=== PATIENT | male | born 1960 | race Hispanic/Latino ===

== ENCOUNTER 2020-01-16 11:23 | Inpatient (IN) | payer BC, OTHER ==
[~2020-01-16] VITALS: Ht 170.2 cm; Wt 60.4 kg
[2020-01-16] MEDS ORDERED: METHYLPREDNISOLONE SOD SUCC 40MG/ML 1ML ONE (11:44)
[2020-01-16] MEDS ORDERED: ONDANSETRON HCL 4 MG/2 ML VIAL ONE (11:45)
[2020-01-16] MEDS ORDERED: SODIUM CHLORIDE 0.9% 500ML 500 ML IV ONE (11:45)
[2020-01-16] MEDS ORDERED: LEVOFLOXACIN 500 MG/D5W 100 ML 100 ML ONE (11:45)
[2020-01-16 11:53] LABS: HEMATOCRIT 42.2 % (42-54); LYMPHOCYTES % (AUTO) 10.3 % (21.0-51.0); MEAN CORPUSCULAR HEMOGLOBIN 31.5 pg (27.0-33.0); MEAN CORPUSCULAR HGB CONC 36.3 g/dL (32.0-36.0); MONOCYTES % (AUTO) 3.9 % (3.0-13.0); NEUTROPHILS % (AUTO) 84.7 % (40.0-77.0); PLATELET COUNT (AUTO) 98 K/uL (130-400); RED BLOOD CELL COUNT(AUTO) 4.85 MIL/uL (4.50-6.20); WHITE BLOOD COUNT (AUTO) 4.6 K/uL (4.8-10.8)
[2020-01-16 12:01] LABS: CARBON DIOXIDE 31 mmol/L (21-32); CHLORIDE 93 mmol/L (101-111); CREATININE 1.1 mg/dL (0.5-1.5); GLOMERULAR FILTR. RATE CALC 73 mL/min (>60); GLUCOSE,RANDOM 113 mg/dL (70-105); SODIUM SERUM 132 mmol/L (136-145); UREA NITROGEN, BLOOD 11 mg/dL (7-18)
[2020-01-16 12:17] LABS: ALANINE AMINOTRANSFERASE 28 U/L (12-78); ALBUMIN 2.8 g/dL (3.5-5.0); ASPARTATE AMINOTRANSFERASE 50 U/L (10-37); BILIRUBIN,TOTAL 0.6 mg/dL (0.2-1.0); CREATINE KINASE, TOTAL 127 U/L (21-232); MYOGLOBIN 82 ng/mL (10-92); TOTAL PROTEIN, SERUM 7.3 g/dL (6.0-8.3); TROPONIN I < 0.04 ng/mL (0.00-0.06)
[2020-01-16 12:19] LABS: APPEARANCE,URINE Clear (CLEAR); BILIRUBIN,URINE Negative (NEGATIVE); COLOR,URINE Yellow (YELLOW); GLUCOSE, URINE (UA) Negative (NEGATIVE); KETONES,URINE Trace mg/dL (NEGATIVE); LEUKOCYTE ESTERASE ,URINE Negative (NEGATIVE); NITRATE,URINE Negative (NEGATIVE); OCCULT BLOOD,URINE Trace (NEGATIVE); PROTEIN,URINE Trace mg/dL (NEGATIVE); UROBILINOGEN,URINE 0.2 mg/dL (0.2-1.0)
[2020-01-16 12:26] LABS: BACTERIA,URINE Rare /HPF (None Seen); RBC,URINE 0-1 /HPF (0-1); SQUAMOUS EPITHELIAL CELL,UR Rare /HPF (0-2)
[2020-01-16 12:38] LABS: INR 0.91 (0.85-1.15); PARTIAL THROMBOPLASTIN TIME 37.1 SEC (26.3-35.5); PROTHROMBIN TIME 9.9 SEC (9.6-11.6)
[2020-01-16] MEDS ORDERED: POTASSIUM BICARB/CIT AC 25 MEQ TABLET.EFF ONE (12:53)
[2020-01-16] MEDS ORDERED: LACTULOSE 20 GM/30 ML UDCUP PO PRN (15:00)
[2020-01-16] MEDS ORDERED: POTASSIUM CHLORIDE 10% ELIXIR 20 MEQ/15 ML UDCUP PO PRN (15:00)
[2020-01-16] MEDS ORDERED: POTASSIUM CHLORIDE 20MEQ/100ML 100 ML IV PRN ×2 (15:00)
[2020-01-16] MEDS: CEFTRIAXONE SODIUM 1 GM IV SCH (15:00)
[2020-01-16] MEDS ORDERED: ZOLPIDEM TARTRATE 5 MG TAB PO PRN (15:00)
[2020-01-16] MEDS: AZITHROMYCIN 500MG+NS 250ML 250 ML IV SCH (15:00)
[2020-01-16] MEDS ORDERED: ONDANSETRON HCL 4 MG/2 ML VIAL IV PRN (15:00)
[2020-01-16] MEDS ORDERED: MAGNESIUM 2GM PREMIX 50ML 50 ML IV PRN (15:00)
[2020-01-16] MEDS ORDERED: ACETAMINOPHEN 325 MG TAB PO PRN (15:00)
[2020-01-16] MEDS ORDERED: LIDOCAINE HCL-MPF 1% 2ML VIAL IV PRN ×2 (15:00)
[2020-01-16] MEDS ORDERED: POTASSIUM CHLORIDE 20 MEQ ERTAB PO PRN (15:00)
[2020-01-16] MEDS ORDERED: DiphenhydrAMINE HCL 50 MG/ML VIAL IV PRN (15:00)
[2020-01-16] MEDS ORDERED: NITROGLYCERIN 0.4 MG SL TAB SL PRN (15:00)
[2020-01-16] MEDS ORDERED: DIPHENHYDRAMINE HCL 25 MG CAPSULE PO PRN (15:00)
[2020-01-16] MEDS ORDERED: MORPHINE SULFATE 2 MG/ML 1ML SYG IV PRN (15:00)
[2020-01-16] MEDS ORDERED: GUAIFENESIN-DM 200/20 MG 10 ML PO PRN (15:00)
[2020-01-16] MEDS ORDERED: HYDRALAZINE HCL 20 MG/ML VIAL IV PRN (15:00)
[2020-01-16] MEDS ORDERED: MAG HYDROX/AL HYDROX/SIMETH ES 30 ML SUSP UDCUP PO PRN (15:00)
[2020-01-16] MEDS ORDERED: SODIUM CHLORIDE 0.9% 50 ML IV ONE (15:52)
[2020-01-16] MEDS ORDERED: AZITHROMYCIN 500MG+NS 250ML 250 ML IV ONE (15:52)
[2020-01-16] MEDS ORDERED: CEFTRIAXONE SODIUM 1 GM ONE (15:52)
[2020-01-16 17:20] VITALS: BP 133/84
[2020-01-16 19:29] VITALS: BP 125/80
[2020-01-16 20:01] VITALS: BP 130/81
[2020-01-16] MEDS: FAMOTIDINE 20MG TAB 20 MG TAB PO SCH (22:14)
[2020-01-17] VITALS: BP 120/73
[2020-01-17 04:00] VITALS: BP 121/86
[2020-01-17 04:28] LABS: BASOPHILS % (AUTO) 0.2 % (0.0-5.0); HEMATOCRIT 42.7 % (42-54); LYMPHOCYTES % (AUTO) 7.4 % (21.0-51.0); MEAN CORPUSCULAR HEMOGLOBIN 31.1 pg (27.0-33.0); MEAN CORPUSCULAR HGB CONC 35.4 g/dL (32.0-36.0); MEAN CORPUSCULAR VOLUME 87.9 fL (79-99); MONOCYTES % (AUTO) 3.9 % (3.0-13.0); PLATELET COUNT (AUTO) 105 K/uL (130-400); RED BLOOD CELL COUNT(AUTO) 4.86 MIL/uL (4.50-6.20); RED CELL DISTRIBUTION WIDTH 11.9 % (11.0-15.5); WHITE BLOOD COUNT (AUTO) 4.6 K/uL (4.8-10.8)
[2020-01-17 04:51] LABS: ALBUMIN 2.6 g/dL (3.5-5.0); BILIRUBIN,TOTAL 0.5 mg/dL (0.2-1.0); CREATININE 1.1 mg/dL (0.5-1.5)
[2020-01-17 05:02] LABS: CRP QUANTITATIVE 412.4 mg/L (0.00-9.0)
[2020-01-17 07:00] VITALS: BP 118/78
[2020-01-17] MEDS: FAMOTIDINE 20MG TAB 20 MG TAB PO SCH ×2 (07:59→21:00)
[2020-01-17] MEDS: DEXAMETHASONE 4 MG TAB PO SCH (07:59)
[2020-01-17] MEDS: ENOXAPARIN SODIUM 0.5 MG/KG EACH SQ SCH (09:00)
[2020-01-17 11:00] VITALS: BP 126/79
[2020-01-17] MEDS ORDERED: PHARMACY COMMUNICATION**REMDESIVIR ORDER MISC SCH (12:45)
[2020-01-17] MEDS: PHARMACY COMMUNICATION MISC SCH ×2 (14:00→22:00)
[2020-01-17 15:00] VITALS: BP 118/77
[2020-01-17] MEDS ORDERED: SODIUM CHLORIDE 0.9% 250 ML IV ONE (15:01)
--- NOTE | 2020-01-17 16:12 | NUR ---
CALL TO #[phone] WILI KING SPOUSE, ON FACE SHEET- NO ANSWER. TEXT - ASKING IF THIS IS CORRECT NUMBER FOR WILI- ANSWER BACK VIA TEXT YOU HAVE WRONG NUMBER CALL TO [phone] NO ANSWER- CALL BACK- WOMAN STATES MISSED CALL- THIS CM IDENTIFIED HERSELF, STATES CALLING FROM HOSPITAL, WOMAN STATES I CANNOT HEAR YOU WELL, AND HUNG UP. CALL BACK, NO ANSWER. CM TO FOLLOW UP NEEDED Addendum: 01/17/20 at 1617 by ANUPAMA AMBROSE RN CM Amended: Links added.
--- NOTE | 2020-01-17 17:31 | NUR ---
Plasma Completed: 2 units of convalescent plasma completed at 1720, pt tolerated well. VSS, RR even and unlabored, airway intact. Pt denies any SOB, itching/hives, N/V or HELMS. Pt sitting comfortably in bed eating dinner. Will administer antibiotics when finished eating. First set of VS: BP- 118/77 HR- 95 RR- 27 Temp- 98.3 Last set of VS: BP- 122/80 HR- 92 RR- 27 Temp- 98.6
[2020-01-17] MEDS: CEFTRIAXONE SODIUM 1 GM IV SCH (18:01)
[2020-01-17] MEDS: AZITHROMYCIN 500MG+NS 250ML 250 ML IV SCH (18:02)
[2020-01-17] MEDS: GUAIFENESIN-CODEINE 5 ML SYRUP PO PRN (18:15)
[2020-01-17 20:00] VITALS: BP 106/64
[2020-01-18] VITALS (7 sets, daily range): BP systolic 116–130; BP diastolic 67–92
[2020-01-18] MEDS: GUAIFENESIN-CODEINE 5 ML SYRUP PO PRN ×2 (00:15→03:33)
[2020-01-18 04:44] LABS: HEMATOCRIT 38.8 % (42-54); LYMPHOCYTES % (AUTO) 5.2 % (21.0-51.0); MEAN CORPUSCULAR HEMOGLOBIN 31.4 pg (27.0-33.0); MEAN CORPUSCULAR HGB CONC 35.3 g/dL (32.0-36.0); MEAN CORPUSCULAR VOLUME 88.8 fL (79-99); MONOCYTES % (AUTO) 3.9 % (3.0-13.0); NEUTROPHILS % (AUTO) 89.6 % (40.0-77.0); PLATELET COUNT (AUTO) 120 K/uL (130-400); RED BLOOD CELL COUNT(AUTO) 4.37 MIL/uL (4.50-6.20); WHITE BLOOD COUNT (AUTO) 6.8 K/uL (4.8-10.8)
[2020-01-18 05:08] LABS: ALBUMIN 2.5 g/dL (3.5-5.0); BILIRUBIN,TOTAL 0.5 mg/dL (0.2-1.0); MAGNESIUM 2.3 mg/dL (1.80-2.40); PHOSPHORUS 2.9 mg/dL (2.5-4.9); TOTAL PROTEIN, SERUM 6.7 g/dL (6.0-8.3)
[2020-01-18 05:31] LABS: CRP QUANTITATIVE 197.1 mg/L (0.00-9.0)
[2020-01-18] MEDS: PHARMACY COMMUNICATION MISC SCH ×3 (06:00→22:00)
[2020-01-18] MEDS: ENOXAPARIN SODIUM 0.5 MG/KG EACH SQ SCH (09:00)
[2020-01-18] MEDS: DEXAMETHASONE 4 MG TAB PO SCH (09:29)
[2020-01-18] MEDS: FAMOTIDINE 20MG TAB 20 MG TAB PO SCH ×2 (09:29→21:23)
[2020-01-18] MEDS ORDERED: ENOXAPARIN SODIUM 40 MG/0.4 ML SYRINGE SQ SCH (09:45)
[2020-01-18] MEDS: CEFTRIAXONE SODIUM 1 GM IV SCH (14:42)
[2020-01-18] MEDS: AZITHROMYCIN 500MG+NS 250ML 250 ML IV SCH (14:42)
[2020-01-18] MEDS: FUROSEMIDE 10 MG/ML 10ML VIAL IVP SCH ×2 (14:50→21:23)
[2020-01-18] MEDS: ENOXAPARIN SODIUM 40 MG/0.4 ML SYRINGE SQ SCH (21:23)
[2020-01-19] VITALS (8 sets, daily range): BP systolic 113–138; BP diastolic 69–93
[2020-01-19 04:09] LABS: BASOPHILS % (AUTO) 0.2 % (0.0-5.0); HEMATOCRIT 40.8 % (42-54); MEAN CORPUSCULAR HEMOGLOBIN 31.3 pg (27.0-33.0); MEAN CORPUSCULAR HGB CONC 35.3 g/dL (32.0-36.0); MEAN CORPUSCULAR VOLUME 88.7 fL (79-99); MONOCYTES % (AUTO) 3.2 % (3.0-13.0); NEUTROPHILS % (AUTO) 88.5 % (40.0-77.0); PLATELET COUNT (AUTO) 156 K/uL (130-400); WHITE BLOOD COUNT (AUTO) 6.3 K/uL (4.8-10.8)
[2020-01-19 04:26] LABS: ALANINE AMINOTRANSFERASE 44 U/L (12-78); ALBUMIN 2.6 g/dL (3.5-5.0); ASPARTATE AMINOTRANSFERASE 42 U/L (10-37); BILIRUBIN,TOTAL 0.7 mg/dL (0.2-1.0); CARBON DIOXIDE 33 mmol/L (21-32); CHLORIDE 99 mmol/L (101-111); GLOMERULAR FILTR. RATE CALC 82 mL/min (>60); GLUCOSE,RANDOM 119 mg/dL (70-105); LACTATE DEHYDROGENASE 487 U/L (81-234); PHOSPHORUS 3.2 mg/dL (2.5-4.9); POTASSIUM 3.5 mmol/L (3.5-5.1); SODIUM SERUM 139 mmol/L (136-145); UREA NITROGEN, BLOOD 19 mg/dL (7-18)
[2020-01-19] MEDS: PHARMACY COMMUNICATION MISC SCH ×3 (06:00→14:00)
[2020-01-19] MEDS: ENOXAPARIN SODIUM 0.5 MG/KG EACH SQ SCH (09:00)
[2020-01-19] MEDS: FAMOTIDINE 20MG TAB 20 MG TAB PO SCH (09:54)
[2020-01-19] MEDS: DEXAMETHASONE 4 MG TAB PO SCH (09:54)
[2020-01-19] MEDS: ENOXAPARIN SODIUM 40 MG/0.4 ML SYRINGE SQ SCH (09:54)
[2020-01-19] MEDS: FUROSEMIDE 10 MG/ML 10ML VIAL IVP SCH (09:55)
--- NOTE | 2020-01-19 11:25 | NUR ---
DC PLAN SPOUSE WILI [phone]. LIVES WITH SPOUSE. INDEPENDENT ABLE TO PERFORM ADLS. NO SERVICES OR EQUIPMENT. FEELS SAFE TO RETURN HOME. Addendum: 01/19/20 at 1128 by ERNESTO PANTOJA RN CM Amended: Links added.
[2020-01-19] MEDS: CEFTRIAXONE SODIUM 1 GM IV SCH (16:43)
[2020-01-19] MEDS: AZITHROMYCIN 500MG+NS 250ML 250 ML IV SCH (16:43)
[2020-01-20] VITALS (7 sets, daily range): BP systolic 110–130; BP diastolic 64–94
[2020-01-20 05:11] LABS: ALBUMIN 2.4 g/dL (3.5-5.0); BILIRUBIN,TOTAL 1.1 mg/dL (0.2-1.0); CREATININE 0.9 mg/dL (0.5-1.5); PHOSPHORUS 3.3 mg/dL (2.5-4.9); POTASSIUM 3.2 mmol/L (3.5-5.1); TOTAL PROTEIN, SERUM 6.9 g/dL (6.0-8.3)
[2020-01-20] MEDS: PHARMACY COMMUNICATION MISC SCH ×3 (06:00→20:37)
[2020-01-20] MEDS: ENOXAPARIN SODIUM 0.5 MG/KG EACH SQ SCH (09:00)
[2020-01-20] MEDS: FUROSEMIDE 10 MG/ML 10ML VIAL IVP SCH (12:11)
[2020-01-20] MEDS: FAMOTIDINE 20MG TAB 20 MG TAB PO SCH ×2 (12:13→20:29)
[2020-01-20] MEDS: DEXAMETHASONE 4 MG TAB PO SCH (12:13)
[2020-01-20] MEDS: ENOXAPARIN SODIUM 40 MG/0.4 ML SYRINGE SQ SCH ×2 (12:28→20:29)
[2020-01-20] MEDS: GUAIFENESIN-CODEINE 5 ML SYRUP PO PRN (12:58)
[2020-01-20] MEDS: AZITHROMYCIN 500MG+NS 250ML 250 ML IV SCH (15:28)
[2020-01-20] MEDS: CEFTRIAXONE SODIUM 1 GM IV SCH (15:28)
[2020-01-20] MEDS: ACETAMINOPHEN-CODEINE 300/30MG TAB PO PRN ×2 (16:07→22:30)
[2020-01-21 04:00] VITALS: BP 121/85
[2020-01-21] MEDS: PHARMACY COMMUNICATION MISC SCH ×3 (06:00→23:07)
[2020-01-21 08:00] VITALS: BP 122/87
[2020-01-21] MEDS: FAMOTIDINE 20MG TAB 20 MG TAB PO SCH ×2 (08:27→21:17)
[2020-01-21] MEDS: GUAIFENESIN-CODEINE 5 ML SYRUP PO PRN (08:27)
[2020-01-21] MEDS: DEXAMETHASONE 4 MG TAB PO SCH (08:27)
[2020-01-21] MEDS: FUROSEMIDE 10 MG/ML 2ML VIAL IV SCH ×2 (08:30→21:17)
[2020-01-21] MEDS: ENOXAPARIN SODIUM 0.5 MG/KG EACH SQ SCH (08:31)
[2020-01-21] MEDS: ENOXAPARIN SODIUM 40 MG/0.4 ML SYRINGE SQ SCH ×2 (08:31→21:17)
[2020-01-21 08:41] LABS: BASOPHILS % (AUTO) 0.2 % (0.0-5.0); EOSINOPHILS % (AUTO) 0.4 % (0.0-8.0); HEMATOCRIT 46.8 % (42-54); MEAN CORPUSCULAR HEMOGLOBIN 31.4 pg (27.0-33.0); MEAN CORPUSCULAR HGB CONC 35.3 g/dL (32.0-36.0); MONOCYTES % (AUTO) 0.8 % (3.0-13.0); PLATELET COUNT (AUTO) 249 K/uL (130-400); RED BLOOD CELL COUNT(AUTO) 5.26 MIL/uL (4.50-6.20); RED CELL DISTRIBUTION WIDTH 11.8 % (11.0-15.5); WHITE BLOOD COUNT (AUTO) 13.9 K/uL (4.8-10.8)
[2020-01-21 08:56] LABS: ALBUMIN 2.6 g/dL (3.5-5.0); BILIRUBIN,TOTAL 1.1 mg/dL (0.2-1.0); POTASSIUM 4.1 mmol/L (3.5-5.1); TOTAL PROTEIN, SERUM 7.8 g/dL (6.0-8.3)
[2020-01-21 12:00] VITALS: BP 131/91
[2020-01-21] MEDS ORDERED: PHARMACY COMMUNICATION MISC SCH (16:00)
[2020-01-21] MEDS: AZITHROMYCIN 500MG+NS 250ML 250 ML IV SCH (16:15)
[2020-01-21] MEDS: CEFTRIAXONE SODIUM 1 GM IV SCH (16:15)
[2020-01-21 17:08] LABS: ALANINE AMINOTRANSFERASE 46 U/L (12-78); ASPARTATE AMINOTRANSFERASE 42 U/L (10-37)
[2020-01-21] MEDS ORDERED: REMDESIVIR (EUA) 520 200 MG in SODIUM CHLORIDE 0.9% 250 ML IV SCH (18:30)
[2020-01-21] MEDS ORDERED: COMPOUND IV REFRIGERATED 1 EACH IVSOLN MISC PRN (18:30)
[2020-01-21 18:53] VITALS: BP 116/78
[2020-01-21 20:00] VITALS: BP_SYST 112; BP_SYST 125; BP_DIAS 67; BP_DIAS 82
[2020-01-21] MEDS: ACETAMINOPHEN-CODEINE 300/30MG TAB PO PRN (21:00)
[2020-01-22] VITALS: BP 113/74
[2020-01-22 04:00] VITALS: BP 131/86
[2020-01-22 04:07] LABS: ABG BASE EXCESS 3.8 mmol/L (-2.0-3.0); ABG HCO3 27.8 mmol/L (21.0-28.0); ABG OXYGEN SATURATION 86.1 % (95.0-99.0); ABG PCO2 40 mmHg (35-48)
[2020-01-22 04:18] LABS: EOSINOPHILS % (AUTO) 0.5 % (0.0-8.0); HEMATOCRIT 39.6 % (42-54); LYMPHOCYTES % (AUTO) 3.1 % (21.0-51.0); MEAN CORPUSCULAR HEMOGLOBIN 31.4 pg (27.0-33.0); MEAN CORPUSCULAR HGB CONC 35.1 g/dL (32.0-36.0); MEAN CORPUSCULAR VOLUME 89.4 fL (79-99); MONOCYTES % (AUTO) 1.1 % (3.0-13.0); NEUTROPHILS % (AUTO) 94.1 % (40.0-77.0); PLATELET COUNT (AUTO) 214 K/uL (130-400); RED BLOOD CELL COUNT(AUTO) 4.43 MIL/uL (4.50-6.20); RED CELL DISTRIBUTION WIDTH 11.9 % (11.0-15.5); WHITE BLOOD COUNT (AUTO) 8.2 K/uL (4.8-10.8)
[2020-01-22 04:33] LABS: ALBUMIN 2.1 g/dL (3.5-5.0); BILIRUBIN,DIRECT 0.1 mg/dL (0.0-0.3); BILIRUBIN,TOTAL 0.7 mg/dL (0.2-1.0); MAGNESIUM 2.3 mg/dL (1.80-2.40); PHOSPHORUS 3.4 mg/dL (2.5-4.9); POTASSIUM 3.7 mmol/L (3.5-5.1); TOTAL PROTEIN, SERUM 6.4 g/dL (6.0-8.3)
[2020-01-22] MEDS: PHARMACY COMMUNICATION MISC SCH ×4 (05:37→22:00)
[2020-01-22] MEDS: GUAIFENESIN-CODEINE 5 ML SYRUP PO PRN (06:00)
[2020-01-22 08:00] VITALS: BP 137/97
--- NOTE | 2020-01-22 08:15 | NUR ---
AM ASSESSMENT PT LAYING IN BED, PRONE POSITION. A/O X 3. SOB ON EXERTION. NO DISTRESS NOTED. NRBM @ 15L, 100% FIO2. DENIES CHEST PAIN OR DISCOMFORT. DENIES PALPITATIONS. TELE: SR. DENIES N/V AND/OR DIARRHEA. BR W/BRP. BEDSIDE COMMODE. INSTRUCTED TO CALL FOR ASSISTANCE. CALL JENNIFER W/IN REACH.
[2020-01-22] MEDS: AZITHROMYCIN 500MG+NS 250ML 250 ML IV SCH (08:26)
[2020-01-22] MEDS: FAMOTIDINE 20MG TAB 20 MG TAB PO SCH ×2 (08:27→21:00)
[2020-01-22] MEDS: DEXAMETHASONE 4 MG TAB PO SCH (08:27)
[2020-01-22] MEDS: CEFTRIAXONE SODIUM 1 GM IV SCH (08:29)
[2020-01-22] MEDS: FUROSEMIDE 10 MG/ML 2ML VIAL IV SCH ×2 (08:29→20:00)
[2020-01-22] MEDS: ENOXAPARIN SODIUM 80 MG/0.8 ML SQ SCH ×2 (08:32→21:00)
[2020-01-22] MEDS ORDERED: ENOXAPARIN SODIUM 1 MG/KG SQ SCH (09:00)
[2020-01-22 12:00] VITALS: BP 121/82
[2020-01-22] MEDS: ACETAMINOPHEN-CODEINE 300/30MG TAB PO PRN ×2 (14:10→22:00)
[2020-01-22 16:00] VITALS: BP 121/80
--- NOTE | 2020-01-22 18:00 | NUR ---
[facility] NOTIFIED PT'S REMDESVIR DOSE DUE @ 1830 NOT IN OMNICELL OR MED RM.
[2020-01-22] MEDS: REMDESIVIR (EUA) 520 100 MG in SODIUM CHLORIDE 0.9% 250 ML IV SCH (19:39)
[2020-01-22 20:00] VITALS: BP 106/70
[2020-01-23] VITALS: BP 102/57
[2020-01-23 04:00] VITALS: BP 118/70
[2020-01-23 04:37] LABS: BASOPHILS % (AUTO) 0.1 % (0.0-5.0); EOSINOPHILS % (AUTO) 0.5 % (0.0-8.0); HEMATOCRIT 41.8 % (42-54); LYMPHOCYTES % (AUTO) 3.4 % (21.0-51.0); MEAN CORPUSCULAR HEMOGLOBIN 31.3 pg (27.0-33.0); MEAN CORPUSCULAR HGB CONC 34.9 g/dL (32.0-36.0); MEAN CORPUSCULAR VOLUME 89.7 fL (79-99); MONOCYTES % (AUTO) 1.3 % (3.0-13.0); PLATELET COUNT (AUTO) 205 K/uL (130-400); RED BLOOD CELL COUNT(AUTO) 4.66 MIL/uL (4.50-6.20); RED CELL DISTRIBUTION WIDTH 12.2 % (11.0-15.5); WHITE BLOOD COUNT (AUTO) 7.6 K/uL (4.8-10.8)
[2020-01-23] MEDS: GUAIFENESIN-CODEINE 5 ML SYRUP PO PRN (05:00)
[2020-01-23 05:09] LABS: ALBUMIN 2.2 g/dL (3.5-5.0); BILIRUBIN,DIRECT 0.2 mg/dL (0.0-0.3); BILIRUBIN,TOTAL 0.8 mg/dL (0.2-1.0); CREATININE 0.8 mg/dL (0.5-1.5); MAGNESIUM 2.3 mg/dL (1.80-2.40); PHOSPHORUS 3.6 mg/dL (2.5-4.9); POTASSIUM 4.2 mmol/L (3.5-5.1)
[2020-01-23 05:41] LABS: CRP QUANTITATIVE 372.6 mg/L (0.00-9.0)
[2020-01-23] MEDS: PHARMACY COMMUNICATION MISC SCH ×4 (06:59→20:13)
[2020-01-23] MEDS: FUROSEMIDE 10 MG/ML 2ML VIAL IV SCH ×2 (08:43→20:12)
[2020-01-23] MEDS: CEFTRIAXONE SODIUM 1 GM IV SCH (08:44)
[2020-01-23] MEDS: AZITHROMYCIN 500MG+NS 250ML 250 ML IV SCH (08:44)
[2020-01-23] MEDS: FAMOTIDINE 20MG TAB 20 MG TAB PO SCH ×2 (08:45→20:12)
[2020-01-23] MEDS: DEXAMETHASONE 4 MG TAB PO SCH (08:45)
[2020-01-23] MEDS: ENOXAPARIN SODIUM 80 MG/0.8 ML SQ SCH ×2 (08:46→20:13)
[2020-01-23 09:34] VITALS: BP 143/77
[2020-01-23 09:57] LABS: BILIRUBIN,DIRECT 0.1 mg/dL (0.0-0.3); BILIRUBIN,TOTAL 0.7 mg/dL (0.2-1.0); POTASSIUM 4.1 mmol/L (3.5-5.1); TOTAL PROTEIN, SERUM 7.1 g/dL (6.0-8.3)
[2020-01-23 10:11] LABS: ALBUMIN 2.2 g/dL (3.5-5.0)
[2020-01-23 12:10] VITALS: BP 112/67
[2020-01-23 17:30] VITALS: BP 104/72
[2020-01-23] MEDS: REMDESIVIR (EUA) 520 100 MG in SODIUM CHLORIDE 0.9% 250 ML IV SCH (18:46)
[2020-01-23 20:12] VITALS: BP 118/77
[2020-01-23] MEDS ORDERED: ASPI-1197 PO (23:26)
[2020-01-23] MEDS ORDERED: LOSA1TAB54 PO (23:26)
[2020-01-23] MEDS ORDERED: BENZ-51 PO (23:26)
[2020-01-23] MEDS ORDERED: ESOM40CA54 PO (23:26)
[2020-01-24] VITALS (9 sets, daily range): BP systolic 94–132; BP diastolic 54–90
[2020-01-24] MEDS: GUAIFENESIN-CODEINE 5 ML SYRUP PO PRN (01:13)
[2020-01-24 04:28] LABS: ALBUMIN 2.1 g/dL (3.5-5.0); BILIRUBIN,DIRECT 0.3 mg/dL (0.0-0.3); BILIRUBIN,TOTAL 0.8 mg/dL (0.2-1.0); POTASSIUM 4.4 mmol/L (3.5-5.1); TOTAL PROTEIN, SERUM 6.5 g/dL (6.0-8.3)
[2020-01-24] MEDS: PHARMACY COMMUNICATION MISC SCH ×2 (05:01)
[2020-01-24] MEDS: FAMOTIDINE 20MG TAB 20 MG TAB PO SCH ×2 (09:47→21:29)
[2020-01-24] MEDS: AZITHROMYCIN 500MG+NS 250ML 250 ML IV SCH (09:47)
[2020-01-24] MEDS: DEXAMETHASONE 4 MG TAB PO SCH (09:47)
[2020-01-24] MEDS: CEFTRIAXONE SODIUM 1 GM IV SCH (09:47)
[2020-01-24] MEDS: ENOXAPARIN SODIUM 80 MG/0.8 ML SQ SCH ×2 (09:48→21:29)
[2020-01-24] MEDS: FUROSEMIDE 10 MG/ML 2ML VIAL IV SCH ×2 (09:50→21:29)
[2020-01-24] MEDS: REMDESIVIR (EUA) 520 100 MG in SODIUM CHLORIDE 0.9% 250 ML IV SCH (18:57)
[2020-01-25] VITALS (8 sets, daily range): BP systolic 92–133; BP diastolic 37–80
[2020-01-25 05:10] LABS: BASOPHILS % (AUTO) 0.1 % (0.0-5.0); EOSINOPHILS % (AUTO) 0.1 % (0.0-8.0); HEMATOCRIT 40.8 % (42-54); LYMPHOCYTES % (AUTO) 2.9 % (21.0-51.0); MEAN CORPUSCULAR HEMOGLOBIN 30.9 pg (27.0-33.0); MEAN CORPUSCULAR HGB CONC 34.3 g/dL (32.0-36.0); MEAN CORPUSCULAR VOLUME 90.1 fL (79-99); MONOCYTES % (AUTO) 1.3 % (3.0-13.0); NEUTROPHILS % (AUTO) 95.2 % (40.0-77.0); PLATELET COUNT (AUTO) 273 K/uL (130-400); RED BLOOD CELL COUNT(AUTO) 4.53 MIL/uL (4.50-6.20); WHITE BLOOD COUNT (AUTO) 8.4 K/uL (4.8-10.8)
[2020-01-25 05:14] LABS: ALBUMIN 1.9 g/dL (3.5-5.0); BILIRUBIN,TOTAL 0.6 mg/dL (0.2-1.0); POTASSIUM 4.3 mmol/L (3.5-5.1); TOTAL PROTEIN, SERUM 6.4 g/dL (6.0-8.3)
[2020-01-25] MEDS: ACETAMINOPHEN-CODEINE 300/30MG TAB PO PRN (05:33)
[2020-01-25 05:42] LABS: B-TYPE NATRIURETIC PEPTIDE 8 pg/mL (0-100)
[2020-01-25] MEDS: PHARMACY COMMUNICATION MISC SCH (06:00)
[2020-01-25] MEDS: CEFTRIAXONE SODIUM 1 GM IV SCH (09:20)
[2020-01-25] MEDS: AZITHROMYCIN 500MG+NS 250ML 250 ML IV SCH (09:20)
[2020-01-25] MEDS: FUROSEMIDE 10 MG/ML 2ML VIAL IV SCH (09:20)
[2020-01-25] MEDS: DEXAMETHASONE 4 MG TAB PO SCH (09:20)
[2020-01-25] MEDS: FAMOTIDINE 20MG TAB 20 MG TAB PO SCH ×2 (09:21→20:19)
[2020-01-25] MEDS: ENOXAPARIN SODIUM 80 MG/0.8 ML SQ SCH ×2 (09:21→20:20)
--- NOTE | 2020-01-25 11:26 | NUR ---
RDSCREEN - LOS X 9 Pt admitted with COVID, Hypoxia. Pt is tolerating Heart Healthy diet order with no report of GI distress. PO intake at 100% this AM. Pt continues with 100% NRB and continues to prone intermittently. RD to continue PO intake as difficulty consuming foods with NRB mask. Recommend continue Heart Healthy Diet order Recommend Ensure BID RD to continue to monitor. Please notify as additional nutrition concerns arise. Thank you. Addendum: 01/25/20 at [address] Amended: Links added.
[2020-01-25] MEDS ORDERED: IOHEXOL-350 75 ML VIAL IV ONE (12:54)
[2020-01-25] MEDS: REMDESIVIR (EUA) 520 100 MG in SODIUM CHLORIDE 0.9% 250 ML IV SCH (18:24)
[2020-01-26] MEDS: GUAIFENESIN-CODEINE 5 ML SYRUP PO PRN ×2 (03:18→21:40)
[2020-01-26 04:00] VITALS: BP 126/79
[2020-01-26 04:42] LABS: CREATININE 0.9 mg/dL (0.5-1.5); MAGNESIUM 2.2 mg/dL (1.80-2.40); POTASSIUM 4.1 mmol/L (3.5-5.1)
[2020-01-26] MEDS: PHARMACY COMMUNICATION MISC SCH (06:00)
[2020-01-26] MEDS: CEFTRIAXONE SODIUM 1 GM IV SCH (08:12)
[2020-01-26] MEDS: AZITHROMYCIN 500MG+NS 250ML 250 ML IV SCH (08:12)
[2020-01-26] MEDS: DEXAMETHASONE 4 MG TAB PO SCH (08:20)
[2020-01-26] MEDS: FAMOTIDINE 20MG TAB 20 MG TAB PO SCH ×2 (08:20→21:04)
[2020-01-26] MEDS: ENOXAPARIN SODIUM 80 MG/0.8 ML SQ SCH ×2 (08:21→21:04)
[2020-01-26 08:29] VITALS: BP 127/77
[2020-01-26 12:14] VITALS: BP 138/68
[2020-01-26 15:28] VITALS: BP 111/68
[2020-01-26 19:00] VITALS: BP 106/60
[2020-01-26 23:00] VITALS: BP 120/75
[2020-01-27 03:00] VITALS: BP 109/73
[2020-01-27 05:00] LABS: BASOPHILS % (AUTO) 0.1 % (0.0-5.0); EOSINOPHILS % (AUTO) 0.2 % (0.0-8.0); HEMATOCRIT 42.4 % (42-54); LYMPHOCYTES % (AUTO) 4.6 % (21.0-51.0); MEAN CORPUSCULAR HEMOGLOBIN 30.9 pg (27.0-33.0); MONOCYTES % (AUTO) 1.7 % (3.0-13.0); NEUTROPHILS % (AUTO) 92.5 % (40.0-77.0); PLATELET COUNT (AUTO) 288 K/uL (130-400); RED BLOOD CELL COUNT(AUTO) 4.66 MIL/uL (4.50-6.20); RED CELL DISTRIBUTION WIDTH 12.3 % (11.0-15.5); WHITE BLOOD COUNT (AUTO) 9.7 K/uL (4.8-10.8)
[2020-01-27 05:25] LABS: BILIRUBIN,TOTAL 0.6 mg/dL (0.2-1.0); CREATININE 0.9 mg/dL (0.5-1.5); MAGNESIUM 2.1 mg/dL (1.80-2.40); POTASSIUM 4.3 mmol/L (3.5-5.1); TOTAL PROTEIN, SERUM 6.2 g/dL (6.0-8.3)
[2020-01-27 08:01] VITALS: BP 116/83
[2020-01-27] MEDS: FAMOTIDINE 20MG TAB 20 MG TAB PO SCH ×2 (10:05→19:34)
[2020-01-27 10:06] LABS: ABG BASE EXCESS 2.3 mmol/L (-2.0-3.0); ABG HCO3 25.8 mmol/L (21.0-28.0); ABG OXYGEN SATURATION 97.9 % (95.0-99.0); ABG PCO2 37 mmHg (35-48)
[2020-01-27] MEDS: ENOXAPARIN SODIUM 80 MG/0.8 ML SQ SCH ×2 (10:12→19:34)
[2020-01-27 12:01] VITALS: BP 112/71
--- NOTE | 2020-01-27 14:19 | NUR ---
RD FOLLOW UP Pt continues with Heart Healthy Diet Order. PO intake at 75% on 01/24. Attempt to call RN unit, no answer. Pt with NRB in place. Ensure BID in place, unknown intake. Monitored labs: Alb 2.0, Improving BUN status, AST 38. LBM 01/24. Recommend to continue current diet order Please notify as additional nutrition concerns arise. Thank you.
[2020-01-27 16:01] VITALS: BP 108/74
[2020-01-27 19:55] VITALS: BP 129/76
[2020-01-27] MEDS: GUAIFENESIN-CODEINE 5 ML SYRUP PO PRN (21:00)
[2020-01-27 23:33] VITALS: BP 111/52
[2020-01-28 04:25] LABS: BASOPHILS % (AUTO) 0.2 % (0.0-5.0); EOSINOPHILS % (AUTO) 0.3 % (0.0-8.0); HEMATOCRIT 41.3 % (42-54); LYMPHOCYTES % (AUTO) 2.6 % (21.0-51.0); MEAN CORPUSCULAR HEMOGLOBIN 30.9 pg (27.0-33.0); MEAN CORPUSCULAR HGB CONC 34.4 g/dL (32.0-36.0); MONOCYTES % (AUTO) 1.5 % (3.0-13.0); PLATELET COUNT (AUTO) 258 K/uL (130-400); RED BLOOD CELL COUNT(AUTO) 4.59 MIL/uL (4.50-6.20); RED CELL DISTRIBUTION WIDTH 12.1 % (11.0-15.5); WHITE BLOOD COUNT (AUTO) 11.7 K/uL (4.8-10.8)
[2020-01-28 04:31] VITALS: BP 111/64
[2020-01-28 04:38] LABS: ALBUMIN 1.7 g/dL (3.5-5.0); BILIRUBIN,TOTAL 0.8 mg/dL (0.2-1.0); CREATININE 0.9 mg/dL (0.5-1.5); POTASSIUM 4.6 mmol/L (3.5-5.1)
[2020-01-28 08:00] VITALS: BP 123/65
[2020-01-28] MEDS: FAMOTIDINE 20MG TAB 20 MG TAB PO SCH ×2 (08:20→20:26)
[2020-01-28] MEDS: ENOXAPARIN SODIUM 80 MG/0.8 ML SQ SCH ×2 (10:10→20:26)
[2020-01-28 12:00] VITALS: BP 121/72
[2020-01-28 16:00] VITALS: BP 131/51
[2020-01-28] MEDS: DIAZEPAM 5 MG TABLET PO PRN (16:45)
[2020-01-28 19:00] VITALS: BP 114/57
[2020-01-28] MEDS: GUAIFENESIN-CODEINE 5 ML SYRUP PO PRN (20:26)
[2020-01-28 23:00] VITALS: BP 112/66
[2020-01-29] VITALS (36 sets, daily range): BP systolic 58–165; BP diastolic 29–113
[2020-01-29] MEDS: DIAZEPAM 5 MG TABLET PO PRN ×2 (00:45→18:59)
[2020-01-29 05:24] LABS: MEAN CORPUSCULAR HEMOGLOBIN 31.5 pg (27.0-33.0); MEAN CORPUSCULAR HGB CONC 34.9 g/dL (32.0-36.0); MEAN CORPUSCULAR VOLUME 90.3 fL (79-99); RED BLOOD CELL COUNT(AUTO) 4.76 MIL/uL (4.50-6.20); RED CELL DISTRIBUTION WIDTH 12.2 % (11.0-15.5); WHITE BLOOD COUNT (AUTO) 13.7 K/uL (4.8-10.8)
[2020-01-29 05:42] LABS: CREATININE 1.1 mg/dL (0.5-1.5); POTASSIUM 4.5 mmol/L (3.5-5.1)
[2020-01-29] MEDS: FAMOTIDINE 20MG TAB 20 MG TAB PO SCH ×2 (08:15→21:00)
[2020-01-29] MEDS: ENOXAPARIN SODIUM 80 MG/0.8 ML SQ SCH ×2 (08:16→21:00)
--- NOTE | 2020-01-29 19:00 | NUR ---
ACCEPTED CARE ACCEPTED CARE REPORT RECEIVED USING SBAR FORMAT. PATIENT IS UNSTABLE HR IS BETWEEN 180 AND 220. PATIENT IS PRONED O2 SATS ARE LOW. CANDLE MOLDER HAND PAGED, ORDERS RECEIVED, PATIENT PLACED ON BIPAP PRONE POSITION MAINTAINED. PATIENT IS RESTLESS AND AGITATED, SEDATED PER ORDERS AND PROTOCOL. CONDITION IS UNSTABLE AND CRITICAL. CARDIZEM DRIP STARTED.
[2020-01-29] MEDS ORDERED: DILTIAZEM 125MG+100 ML NS 125 ML IV PRN (20:00)
[2020-01-29] MEDS ORDERED: LORAZEPAM 2 MG/ML 1 ML VIAL ONE (20:05)
[2020-01-29] MEDS ORDERED: DILTIAZEM HCL 5 MG/ML 10 ML VIAL IV SCH (21:00)
[2020-01-29] MEDS ORDERED: LORAZEPAM 2 MG/ML 1 ML VIAL IVP ONE (21:00)
[2020-01-29 21:01] LABS: ABG BASE EXCESS -3.7 mmol/L (-2.0-3.0); ABG HCO3 22.4 mmol/L (21.0-28.0); ABG OXYGEN SATURATION 73.3 % (95.0-99.0); ABG PCO2 44 mmHg (35-48)
[2020-01-29] MEDS ORDERED: DEXMEDETOMIDINE HCL 400 MCG in SODIUM CHLORIDE 0.9% 96 ML IV PRN (21:15)
[2020-01-29] MEDS ORDERED: NOREPINEPHRINE 4MG/NS 250ML 250 ML IV ONE (21:33)
[2020-01-29] MEDS ORDERED: AMIODARONE HCL 50 MG/ML 3 ML VIAL ONE (21:34)
[2020-01-29] MEDS ORDERED: PHENYLEPHRINE HCL 10 MG/ML 1ML VIAL IV ONE (21:34)
[2020-01-29] MEDS ORDERED: DEXTROSE 5%-WATER 0 ML IV ONE (21:35)
[2020-01-29] MEDS ORDERED: SODIUM CHLORIDE 0.9% 250 ML IV ONE (21:35)
[2020-01-29] MEDS ORDERED: SODIUM CHLORIDE 0.9% 100 ML IV ONE (21:35)
[2020-01-29 21:45] LABS: BASOPHILS % (AUTO) 0.2 % (0.0-5.0); EOSINOPHILS % (AUTO) 0.1 % (0.0-8.0); HEMATOCRIT 41.3 % (42-54); LYMPHOCYTES % (AUTO) 1.3 % (21.0-51.0); MEAN CORPUSCULAR HEMOGLOBIN 31.3 pg (27.0-33.0); MEAN CORPUSCULAR HGB CONC 34.4 g/dL (32.0-36.0); MONOCYTES % (AUTO) 1.8 % (3.0-13.0); NEUTROPHILS % (AUTO) 94.1 % (40.0-77.0); PLATELET COUNT (AUTO) 244 K/uL (130-400); RED BLOOD CELL COUNT(AUTO) 4.54 MIL/uL (4.50-6.20); RED CELL DISTRIBUTION WIDTH 12.4 % (11.0-15.5); WHITE BLOOD COUNT (AUTO) 16.2 K/uL (4.8-10.8)
[2020-01-29 22:03] LABS: CREATININE 1.3 mg/dL (0.5-1.5); POTASSIUM 4.4 mmol/L (3.5-5.1)
[2020-01-29 22:06] LABS: MAGNESIUM 1.7 mg/dL (1.80-2.40); PHOSPHORUS 4.6 mg/dL (2.5-4.9)
[2020-01-29 22:23] LABS: TROPONIN I 0.05 ng/mL (0.00-0.06)
[2020-01-29 23:35] LABS: ABG BASE EXCESS -2.4 mmol/L (-2.0-3.0); ABG OXYGEN SATURATION 94.2 % (95.0-99.0); ABG PCO2 37 mmHg (35-48)
[2020-01-30] VITALS (94 sets, daily range): BP systolic 67–181; BP diastolic 29–108
[2020-01-30] MEDS ORDERED: DEXMEDETOMIDINE HCL 200 MCG/2 ML VIAL IV ONE (02:16)
[2020-01-30] MEDS ORDERED: NOREPINEPHRINE 4MG/NS 250ML 250 ML IV ONE ×2 (02:16→05:58)
[2020-01-30] MEDS ORDERED: SODIUM CHLORIDE 0.9% 100 ML IV ONE (02:17)
[2020-01-30] MEDS ORDERED: LORAZEPAM 2 MG/ML 1 ML VIAL IVP PRN (04:00)
[2020-01-30] MEDS ORDERED: LORAZEPAM 2 MG/ML 1 ML VIAL ONE (04:10)
[2020-01-30 04:36] LABS: TROPONIN I 0.05 ng/mL (0.00-0.06)
--- NOTE | 2020-01-30 05:23 | NUR ---
PATIENT ACTIVITY FOUND PATIENT ON HIS KNEES BESIDE THE BED. HE WAS OFF THE MONITOR, DISCONNECTED FROM BIPAP, CHAU WAS BROKEN AND 2 IV'S WERE PULLED OUT. PATIENT WAS PUT IN A CHAIR AND THEN BACK TO BED BY 4 RN'S. HE HAS NO OBVIOUS INJURIES TO HEAD OR BODY. PRIMARY CARE NOTIFIED NO NEW ORDERS WERE RECEIVED. PATIENT CAME DISCONNECTED FROM THE MONITOR AT 5:21 AND WAS BACK IN BED AND CONNECTED TO THE MONITOR AT 05:25. HE IS NO LONGER PRONED. HE REMAINS ON THE MAXIMUM DOSE OF PRECEDEX.
--- NOTE | 2020-01-30 07:51 | NUR ---
Code: Call benchmark line for ornamental iron worker apprentice physician at this time, received instruction to text Dr. Foote, texted Dr. Foote and send ABG result with SpO2 of 77%, Po2 41.8, HR increasing, received no response, attempted to call him x5, seems like his phone is off, waited for 30mins. still got no response, warehouse and receiving supervisor at bedside, notified her that I needed a Dr. attempted to call ER Dr. they refer us to call QUALITY ENGINEER, at this moment, I was afraid that Pt is going to code, he was in severe distress and continually desatting, told warehouse and receiving supervisor that I am going to push lilo story so we can have physician at the bedside that can intubate the Pt, and she agrees to it, lilo story was called, Pt was intubated by Dr. Hsu at 0825.
[2020-01-30 08:06] LABS: ABG BASE EXCESS -4.3 mmol/L (-2.0-3.0); ABG HCO3 20.5 mmol/L (21.0-28.0); ABG OXYGEN SATURATION 77.1 % (95.0-99.0); ABG PCO2 37 mmHg (35-48)
[2020-01-30] MEDS: FAMOTIDINE 20MG TAB 20 MG TAB PO SCH ×2 (09:00→20:25)
[2020-01-30] MEDS ORDERED: PROPOFOL 1000 MG/100 ML IV PRN (09:15)
[2020-01-30] MEDS ORDERED: PROPOFOL 1000 MG/100 ML 100 ML IV ONE (09:17)
[2020-01-30] MEDS ORDERED: FUROSEMIDE 10 MG/ML 4ML VIAL ONE (09:35)
[2020-01-30 10:39] LABS: ABG BASE EXCESS -2.2 mmol/L (-2.0-3.0); ABG HCO3 23.5 mmol/L (21.0-28.0); ABG OXYGEN SATURATION 86.9 % (95.0-99.0); ABG PCO2 44 mmHg (35-48)
[2020-01-30 11:17] LABS: BASOPHILS % (AUTO) 0.2 % (0.0-5.0); HEMATOCRIT 39.3 % (42-54); LYMPHOCYTES % (AUTO) 1.6 % (21.0-51.0); MEAN CORPUSCULAR HEMOGLOBIN 30.8 pg (27.0-33.0); MEAN CORPUSCULAR HGB CONC 33.3 g/dL (32.0-36.0); MEAN CORPUSCULAR VOLUME 92.3 fL (79-99); MONOCYTES % (AUTO) 3.4 % (3.0-13.0); NEUTROPHILS % (AUTO) 92.9 % (40.0-77.0); PLATELET COUNT (AUTO) 253 K/uL (130-400); RED BLOOD CELL COUNT(AUTO) 4.26 MIL/uL (4.50-6.20); RED CELL DISTRIBUTION WIDTH 12.6 % (11.0-15.5); WHITE BLOOD COUNT (AUTO) 19.4 K/uL (4.8-10.8)
[2020-01-30 11:31] LABS: MAGNESIUM 2.1 mg/dL (1.80-2.40); PHOSPHORUS 4.3 mg/dL (2.5-4.9)
[2020-01-30] MEDS: DOXYCYCLINE HYCLATE 100 MG TABLET PO SCH ×2 (11:33→20:25)
[2020-01-30] MEDS: ENOXAPARIN SODIUM 80 MG/0.8 ML SQ SCH ×2 (11:34→20:24)
[2020-01-30] MEDS ORDERED: VANCOMYCIN PROTOCOL PER PHARMACY IV SCH (12:45)
[2020-01-30] MEDS ORDERED: VANCOMYCIN 1.5 GM in SODIUM CHLORIDE 0.9% 250 ML IV ONE (12:45)
[2020-01-30] MEDS: CEFEPIME HCL 2 GM VIAL IVP SCH ×2 (13:05→20:23)
[2020-01-30 14:05] LABS: TROPONIN I 0.07 ng/mL (0.00-0.06)
[2020-01-30 14:18] LABS: INR 1.05 (0.85-1.15); PROTHROMBIN TIME 11.3 SEC (9.6-11.6)
[2020-01-30] MEDS: NOREPINEPHRINE 4MG/NS 250ML 250 ML IV SCH ×2 (14:47→18:38)
--- NOTE | 2020-01-30 14:47 | NUR ---
A-FLUTTER: A-flutter noted at this time, rate in 140's with desaturation, notified Dr. Foote, order received to start Amio bolus then drip, then stop Cardizem as soon as Amio drip started. 1636- A-flutter in 120's still noted without desaturation, Amio infusing at 1mg/min. at this time.
[2020-01-30] MEDS: AMIODARONE HCL 150 MG in DEXTROSE 5%-WATER 100 ML IV SCH (15:21)
[2020-01-30] MEDS: AMIODARONE HCL 360 MG in DEXTROSE 5%-WATER 200 ML IV SCH (15:59)
--- NOTE | 2020-01-30 16:43 | NUR ---
A-flutter: Dr. Lima at the bedside at this time, he noted Pt being in and out A-flutter and Sinus tach, received instruction that if Pt sustain in 110's A-flutter to call him so he can order 150mg Amio IVP.
[2020-01-30] MEDS: PROPOFOL 1000 MG/100 ML 100 ML IV PRN ×2 (18:36→22:57)
[2020-01-30] MEDS ORDERED: NOREPINEPHRINE BITARTRATE 8 MG in DEXTROSE 5%-WATER 250 ML IV PRN (19:45)
[2020-01-30] MEDS: METHYLPREDNISOLONE SOD SUCC 125MG/2ML VIAL IVP SCH (20:23)
[2020-01-30] MEDS: VANCOMYCIN 1GM+NS 250ML 250 ML IV SCH (20:24)
[2020-01-30] MEDS ORDERED: AMIODARONE HCL 200 MG TABLET PO SCH (21:00)
[2020-01-31] VITALS (88 sets, daily range): BP systolic 85–134; BP diastolic 43–95
[2020-01-31] MEDS: PROPOFOL 1000 MG/100 ML 100 ML IV PRN ×4 (03:56→22:25)
[2020-01-31] MEDS: CEFEPIME HCL 2 GM VIAL IVP SCH ×3 (03:57→21:25)
[2020-01-31] MEDS: METHYLPREDNISOLONE SOD SUCC 125MG/2ML VIAL IVP SCH ×3 (03:57→21:27)
[2020-01-31 04:39] LABS: MEAN CORPUSCULAR VOLUME 94.1 fL (79-99); RED BLOOD CELL COUNT(AUTO) 3.93 MIL/uL (4.50-6.20); WHITE BLOOD COUNT (AUTO) 18.1 K/uL (4.8-10.8)
[2020-01-31 04:49] LABS: CREATININE 1.1 mg/dL (0.5-1.5); POTASSIUM 4.6 mmol/L (3.5-5.1)
[2020-01-31 04:49] LABS: ABG BASE EXCESS -9.2 mmol/L (-2.0-3.0); ABG HCO3 18.8 mmol/L (21.0-28.0); ABG PCO2 48 mmHg (35-48)
[2020-01-31 04:53] LABS: ALBUMIN 1.2 g/dL (3.5-5.0); BILIRUBIN,TOTAL 0.5 mg/dL (0.2-1.0); TOTAL PROTEIN, SERUM 5.2 g/dL (6.0-8.3)
[2020-01-31 06:52] LABS: MAGNESIUM 2.8 mg/dL (1.80-2.40); PHOSPHORUS 3.2 mg/dL (2.5-4.9)
[2020-01-31] MEDS ORDERED: AMIODARONE HCL 150 MG in DEXTROSE 5%-WATER 100 ML IV SCH (07:00)
[2020-01-31] MEDS: AMIODARONE HCL 360 MG in DEXTROSE 5%-WATER 200 ML IV SCH (07:58)
[2020-01-31] MEDS: DOXYCYCLINE HYCLATE 100 MG TABLET PO SCH ×2 (08:35→21:27)
[2020-01-31] MEDS: FAMOTIDINE 20MG TAB 20 MG TAB PO SCH ×2 (08:35→21:27)
[2020-01-31] MEDS: VANCOMYCIN 1GM+NS 250ML 250 ML IV SCH ×2 (08:35→21:26)
[2020-01-31] MEDS: ENOXAPARIN SODIUM 80 MG/0.8 ML SQ SCH ×2 (08:35→21:28)
[2020-01-31] MEDS: AMIODARONE HCL 150 MG in DEXTROSE 5%-WATER 100 ML IV SCH (09:35)
[2020-01-31] MEDS: AMIODARONE HCL 200 MG TABLET PO SCH ×3 (09:38→21:29)
--- NOTE | 2020-01-31 11:25 | NUR ---
Family update: Updated family with Pt's condition, POC, recent VS, answered all questions, verbalized understanding, will continue to monitor.
--- NOTE | 2020-01-31 12:00 | NUR ---
Change rhythm: Change rhythm noted, elevated ST, 12 lead EKG done, notified and showed EKG to Dr. Foote no order received at this time.
[2020-01-31] MEDS ORDERED: FENTANYL CITRATE PF 0.05 MG/ML 1,000 MCG in SODIUM CHLORIDE 0.9% 100 ML IVPB SCH (13:30)
[2020-01-31] MEDS: FENTANYL 2500MCG+NS 250ML 250 ML IV SCH (13:54)
--- NOTE | 2020-01-31 14:00 | NUR ---
Echo: Called echo lab to notify them that Pt now in supine position, they verbalized that it is not possible to have it done today, notified them that tomorrow at 1400 pt will be in supine position again until midnight.`
--- NOTE | 2020-01-31 15:20 | NUR ---
RD FOLLOW UP Pt intubated, sedated. Propofol at 21mls/hr (555kcal/day). Recommend initiate continuous Tube Feeding Vital AF 1.2 @20mls/hr. Goal rate 45mls/hr as tolerated. Recommend free H2O Flush of 120mls Q4hrs. Recommendations faxed to 2B. RN notified. Recommend discontinue PO diet order. RD to continue to monitor. Please notify as additional nutrition concerns arise. Thank you. Addendum: 01/31/20 at [address] Amended: Links added.
[2020-01-31] MEDS ORDERED: DOCUSATE NA 100MG/10ML UDCUP PO SCH (21:00)
[2020-01-31] MEDS: DOCUSATE NA 100MG/10ML UDCUP PO SCH (21:26)
[2020-02-01] VITALS (85 sets, daily range): BP systolic 88–127; BP diastolic 40–81
[2020-02-01] MEDS ORDERED: DILTIAZEM HCL 5 MG/ML 5 ML VIAL IVP PRN (02:00)
--- NOTE | 2020-02-01 02:00 | NUR ---
CHANGE IN HR CARDIOLOGY PROCESS SUPERVISOR PAGED DISCUSSED WITH DR. GREENE CHANGE IN HR RATE SUSTAIN > 120BPM AFLUTTER -INFORMED OF ON GOING IRREGULAR CHANGE IN HR, PREVIOUS & CURRENT MEDS GIVEN FOR HR EPISODES - NEW ORDERS RECEIVED TO START CARDIZEM PROTOCOL.
[2020-02-01] MEDS ORDERED: DILTIAZEM HCL 5 MG/ML 10 ML VIAL IV ONE (02:02)
[2020-02-01] MEDS ORDERED: SODIUM CHLORIDE 0.9% 100 ML IV ONE (02:04)
[2020-02-01] MEDS: DILTIAZEM HCL 125 MG/25 ML 125 MG in SODIUM CHLORIDE 0.9% 100 ML IV PRN ×2 (02:28→15:28)
[2020-02-01] MEDS: CEFEPIME HCL 2 GM VIAL IVP SCH ×3 (04:33→19:48)
[2020-02-01 05:05] LABS: ABG BASE EXCESS -2.8 mmol/L (-2.0-3.0); ABG HCO3 25.6 mmol/L (21.0-28.0); ABG OXYGEN SATURATION 97.6 % (95.0-99.0); ABG PCO2 60 mmHg (35-48)
[2020-02-01 05:32] LABS: MEAN CORPUSCULAR HEMOGLOBIN 30.8 pg (27.0-33.0); MEAN CORPUSCULAR HGB CONC 32.6 g/dL (32.0-36.0); MEAN CORPUSCULAR VOLUME 94.4 fL (79-99); RED BLOOD CELL COUNT(AUTO) 3.6 MIL/uL (4.50-6.20); RED CELL DISTRIBUTION WIDTH 13.1 % (11.0-15.5); WHITE BLOOD COUNT (AUTO) 17.1 K/uL (4.8-10.8)
[2020-02-01 06:01] LABS: ALBUMIN 1.1 g/dL (3.5-5.0); BILIRUBIN,TOTAL 0.3 mg/dL (0.2-1.0); CREATININE 1.1 mg/dL (0.5-1.5); MAGNESIUM 2.2 mg/dL (1.80-2.40); PHOSPHORUS 2.3 mg/dL (2.5-4.9); TOTAL PROTEIN, SERUM 4.7 g/dL (6.0-8.3)
[2020-02-01 07:40] LABS: ABG BASE EXCESS -5.7 mmol/L (-2.0-3.0); ABG HCO3 22.7 mmol/L (21.0-28.0); ABG OXYGEN SATURATION 97.9 % (95.0-99.0); ABG PCO2 56 mmHg (35-48)
[2020-02-01] MEDS: DOCUSATE NA 100MG/10ML UDCUP PO SCH ×2 (08:33→19:48)
[2020-02-01] MEDS: VANCOMYCIN 1GM+NS 250ML 250 ML IV SCH ×2 (08:34→19:48)
[2020-02-01] MEDS: ENOXAPARIN SODIUM 80 MG/0.8 ML SQ SCH ×2 (08:34→19:49)
[2020-02-01] MEDS: POLYETHYLENE GLYCOL 3350 17 GM POWD.PACK PO SCH (08:34)
[2020-02-01] MEDS: PROPOFOL 1000 MG/100 ML 100 ML IV PRN (08:38)
[2020-02-01] MEDS ORDERED: POLYETHYLENE GLYCOL 3350 17 GM POWD.PACK PO SCH (09:00)
[2020-02-01] MEDS: AMIODARONE HCL 200 MG TABLET PO SCH ×3 (09:12→23:16)
[2020-02-01] MEDS: METHYLPREDNISOLONE SOD SUCC 125MG/2ML VIAL IVP SCH ×2 (09:13→19:48)
[2020-02-01] MEDS: DOXYCYCLINE HYCLATE 100 MG TABLET PO SCH ×2 (09:13→20:09)
[2020-02-01] MEDS: FAMOTIDINE 20MG TAB 20 MG TAB PO SCH ×2 (09:13→19:48)
--- NOTE | 2020-02-01 14:00 | NUR ---
Supine: Placed Pt in supine position, Pt tolerated well, partially awake, following command, asked Pt to open mouth while providing oral care, squeeze hand, open eyes, Propool infusing at 15mcg/kg/min, Fentanyl at 90mcg/h and Diltiazem at 5mh/hr, hand mittens in place to protect Pt from accidentally pulling ETT, maintaining SpO2 of 97%, will continue to monitor, delivery technician notified that pt now in supine position.
[2020-02-01] MEDS: FENTANYL 2500MCG+NS 250ML 250 ML IV SCH (17:03)
[2020-02-01] MEDS: METOPROLOL TARTRATE 25 MG TAB PO SCH (19:48)
[2020-02-02] VITALS (56 sets, daily range): BP systolic 86–149; BP diastolic 46–99
[2020-02-02] MEDS: DIAZEPAM 5 MG TABLET PO PRN (01:09)
[2020-02-02] MEDS ORDERED: DILTIAZEM HCL 5 MG/ML 10 ML VIAL IV ONE (01:14)
[2020-02-02] MEDS ORDERED: SODIUM CHLORIDE 0.9% 100 ML IV ONE (01:15)
--- NOTE | 2020-02-02 01:33 | NUR ---
Prone positioning and continuity of care-At approximately 0000 patient placed in prone position with the assistance from staff. appears patient tolerated well during initial positioning. approximately 30 minutes to hour later patient appears to be agitated with evidence of moving head back and forth as well as moving arms. patient medicated as ordered for agitation to assist with calming down and to rest appropriately. At this time patient in prone position and trendelenburg position with head up right. Current sats of 94% and blood pressure of 101/51 with pulse of 103. Will continue to monitor during tour and decrease cardizem as tolerated. Propofol infusing @ 20mcg/kg/min, Cardizem infusing @12mg/hr, Fentanyl 100mcg/hr to left upper arm triple lumen picc. Addendum: 02/02/20 at 0613 by Padmini Cunningham RN RN Prone position and iv infusions--Currently patient continues to prone in trendelenburg position with head upright. No s/s of distress noted. movement during the tour but able to rest. At this time cardizem decreased to 10mg/hr (10ml/hr). Current vitals 98/63 with pulse of 91-94. 02-95%. Will continue to monitor during shift.
[2020-02-02] MEDS: CEFEPIME HCL 2 GM VIAL IVP SCH ×3 (03:29→21:08)
[2020-02-02 04:17] LABS: BASOPHILS % (AUTO) 0.1 % (0.0-5.0); HEMATOCRIT 34.3 % (42-54); LYMPHOCYTES % (AUTO) 0.8 % (21.0-51.0); MEAN CORPUSCULAR HEMOGLOBIN 31.3 pg (27.0-33.0); MEAN CORPUSCULAR HGB CONC 32.7 g/dL (32.0-36.0); MEAN CORPUSCULAR VOLUME 95.8 fL (79-99); MONOCYTES % (AUTO) 2.5 % (3.0-13.0); NEUTROPHILS % (AUTO) 95.7 % (40.0-77.0); PLATELET COUNT (AUTO) 162 K/uL (130-400); RED BLOOD CELL COUNT(AUTO) 3.58 MIL/uL (4.50-6.20); RED CELL DISTRIBUTION WIDTH 13.6 % (11.0-15.5); WHITE BLOOD COUNT (AUTO) 15.3 K/uL (4.8-10.8)
[2020-02-02 04:21] LABS: ABG BASE EXCESS -1.8 mmol/L (-2.0-3.0); ABG HCO3 26.3 mmol/L (21.0-28.0); ABG OXYGEN SATURATION 92.3 % (95.0-99.0); ABG PCO2 59 mmHg (35-48)
[2020-02-02] MEDS: IPRATROPIUM 0.5 MG/2.5 ML INH IH SCH (04:38)
[2020-02-02 04:43] LABS: ALBUMIN 1.3 g/dL (3.5-5.0); BILIRUBIN,TOTAL 0.3 mg/dL (0.2-1.0); CREATININE 1.3 mg/dL (0.5-1.5); MAGNESIUM 3.5 mg/dL (1.80-2.40); PHOSPHORUS 2.2 mg/dL (2.5-4.9); POTASSIUM 4.2 mmol/L (3.5-5.1); TOTAL PROTEIN, SERUM 5.4 g/dL (6.0-8.3)
[2020-02-02] MEDS: AMIODARONE HCL 200 MG TABLET PO SCH ×3 (05:16→22:41)
[2020-02-02] MEDS: DOCUSATE NA 100MG/10ML UDCUP PO SCH ×2 (10:02→20:40)
[2020-02-02] MEDS: DOXYCYCLINE HYCLATE 100 MG TABLET PO SCH ×2 (10:02→20:40)
[2020-02-02] MEDS: METOPROLOL TARTRATE 25 MG TAB PO SCH ×2 (10:02→20:40)
[2020-02-02] MEDS: POLYETHYLENE GLYCOL 3350 17 GM POWD.PACK PO SCH (10:02)
[2020-02-02] MEDS: ENOXAPARIN SODIUM 80 MG/0.8 ML SQ SCH ×2 (10:02→20:40)
[2020-02-02] MEDS: FAMOTIDINE 20MG TAB 20 MG TAB PO SCH ×2 (10:02→20:40)
[2020-02-02] MEDS: METHYLPREDNISOLONE SOD SUCC 125MG/2ML VIAL IVP SCH ×2 (10:02→20:40)
[2020-02-02] MEDS: VANCOMYCIN 1GM+NS 250ML 250 ML IV SCH (10:15)
[2020-02-02] MEDS: PROPOFOL 1000 MG/100 ML 100 ML IV PRN (18:51)
[2020-02-02] MEDS: FENTANYL 2500MCG+NS 250ML 250 ML IV SCH (18:52)
[2020-02-03] VITALS (93 sets, daily range): BP systolic 99–160; BP diastolic 56–95
[2020-02-03] MEDS: CEFEPIME HCL 2 GM VIAL IVP SCH ×3 (03:30→22:06)
[2020-02-03 04:09] LABS: ABG BASE EXCESS 2.2 mmol/L (-2.0-3.0); ABG HCO3 28.1 mmol/L (21.0-28.0); ABG OXYGEN SATURATION 91.2 % (95.0-99.0); ABG PCO2 48 mmHg (35-48)
[2020-02-03 04:50] LABS: BASOPHILS % (AUTO) 0.1 % (0.0-5.0); HEMATOCRIT 32.1 % (42-54); LYMPHOCYTES % (AUTO) 0.8 % (21.0-51.0); MEAN CORPUSCULAR HEMOGLOBIN 31.3 pg (27.0-33.0); MEAN CORPUSCULAR HGB CONC 33.3 g/dL (32.0-36.0); MEAN CORPUSCULAR VOLUME 93.9 fL (79-99); MONOCYTES % (AUTO) 3.5 % (3.0-13.0); NEUTROPHILS % (AUTO) 94.7 % (40.0-77.0); PLATELET COUNT (AUTO) 162 K/uL (130-400); RED BLOOD CELL COUNT(AUTO) 3.42 MIL/uL (4.50-6.20); RED CELL DISTRIBUTION WIDTH 13.5 % (11.0-15.5); WHITE BLOOD COUNT (AUTO) 13.8 K/uL (4.8-10.8)
[2020-02-03 05:06] LABS: ALBUMIN 1.4 g/dL (3.5-5.0); BILIRUBIN,TOTAL 0.3 mg/dL (0.2-1.0); CREATININE 1.3 mg/dL (0.5-1.5); MAGNESIUM 3.4 mg/dL (1.80-2.40); PHOSPHORUS 1.7 mg/dL (2.5-4.9); POTASSIUM 4.5 mmol/L (3.5-5.1); TOTAL PROTEIN, SERUM 5.1 g/dL (6.0-8.3)
[2020-02-03] MEDS: AMIODARONE HCL 200 MG TABLET PO SCH ×2 (05:34→22:09)
[2020-02-03] MEDS: METHYLPREDNISOLONE SOD SUCC 125MG/2ML VIAL IVP SCH ×2 (09:43→22:07)
[2020-02-03] MEDS: FAMOTIDINE 20MG TAB 20 MG TAB PO SCH ×2 (09:43→22:09)
[2020-02-03] MEDS: ENOXAPARIN SODIUM 80 MG/0.8 ML SQ SCH ×2 (09:43→22:10)
[2020-02-03] MEDS: DOCUSATE NA 100MG/10ML UDCUP PO SCH ×2 (09:43→22:08)
[2020-02-03] MEDS: DOXYCYCLINE HYCLATE 100 MG TABLET PO SCH ×2 (09:44→22:08)
[2020-02-03] MEDS: METOPROLOL TARTRATE 25 MG TAB PO SCH ×2 (09:44→22:08)
[2020-02-03] MEDS: POLYETHYLENE GLYCOL 3350 17 GM POWD.PACK PO SCH (09:44)
--- NOTE | 2020-02-03 11:43 | NUR ---
ECMO TRANSFER RECEIVED ORDER FOR TRANSFER TO [facility]. CALLED HOUSE TO LET HER KNOW SAID TO FAX. FAXED DID NOT GO THROUGH. PLACED UNDER THE DOOR. CALLED POD TO LET NURSE KNOW THAT IT SHOULD BE HOUSE FOR HIGHER LEVEL OF CARE. NO ANSWER. Addendum: 02/03/20 at 1156 by ERNESTO PANTOJA RN CM Amended: Links added.
[2020-02-03] MEDS: PROPOFOL 1000 MG/100 ML 100 ML IV PRN ×2 (16:31→22:43)
--- NOTE | 2020-02-03 16:53 | NUR ---
Communication to family: Updated family via Zoom with POC, vitals, meds that are currently infusing, labs, discussed DNR and guide family to understand what DNR is, intervention that can be provided while on DNR status and discussed comfort care, as of now family do not want to make decision yet, but they understand that sooner they have to make decision.
[2020-02-03] MEDS: FENTANYL 2500MCG+NS 250ML 250 ML IV SCH (18:10)
[2020-02-04] VITALS (83 sets, daily range): BP systolic 100–187; BP diastolic 64–105
[2020-02-04] MEDS: CEFEPIME HCL 2 GM VIAL IVP SCH ×3 (03:30→19:35)
[2020-02-04] MEDS: PROPOFOL 1000 MG/100 ML 100 ML IV PRN (03:37)
[2020-02-04 04:39] LABS: ABG BASE EXCESS 6.2 mmol/L (-2.0-3.0); ABG HCO3 30.9 mmol/L (21.0-28.0); ABG OXYGEN SATURATION 92.4 % (95.0-99.0); ABG PCO2 45 mmHg (35-48)
[2020-02-04 04:57] LABS: BASOPHILS % (AUTO) 0.2 % (0.0-5.0); HEMATOCRIT 33.5 % (42-54); LYMPHOCYTES % (AUTO) 1.1 % (21.0-51.0); MEAN CORPUSCULAR HEMOGLOBIN 32.4 pg (27.0-33.0); MEAN CORPUSCULAR HGB CONC 34.3 g/dL (32.0-36.0); MEAN CORPUSCULAR VOLUME 94.4 fL (79-99); MONOCYTES % (AUTO) 3.4 % (3.0-13.0); NEUTROPHILS % (AUTO) 91.6 % (40.0-77.0); NUCLEATED RED BLOOD CELLS 0.2 % (0.0-0.19); PLATELET COUNT (AUTO) 156 K/uL (130-400); RED BLOOD CELL COUNT(AUTO) 3.55 MIL/uL (4.50-6.20); RED CELL DISTRIBUTION WIDTH 13.5 % (11.0-15.5); WHITE BLOOD COUNT (AUTO) 13.2 K/uL (4.8-10.8)
[2020-02-04 05:13] LABS: ALBUMIN 1.5 g/dL (3.5-5.0); BILIRUBIN,TOTAL 0.6 mg/dL (0.2-1.0); CREATININE 1.4 mg/dL (0.5-1.5); MAGNESIUM 2.4 mg/dL (1.80-2.40); PHOSPHORUS 2.5 mg/dL (2.5-4.9); POTASSIUM 4.3 mmol/L (3.5-5.1); TOTAL PROTEIN, SERUM 5.1 g/dL (6.0-8.3)
[2020-02-04] MEDS: DOCUSATE NA 100MG/10ML UDCUP PO SCH ×2 (10:02→19:36)
[2020-02-04] MEDS: DOXYCYCLINE HYCLATE 100 MG TABLET PO SCH ×2 (10:02→19:36)
[2020-02-04] MEDS: METOPROLOL TARTRATE 25 MG TAB PO SCH ×2 (10:02→19:36)
[2020-02-04] MEDS: POLYETHYLENE GLYCOL 3350 17 GM POWD.PACK PO SCH (10:03)
[2020-02-04] MEDS: ENOXAPARIN SODIUM 80 MG/0.8 ML SQ SCH ×2 (10:03→19:36)
[2020-02-04] MEDS: FAMOTIDINE 20MG TAB 20 MG TAB PO SCH ×2 (10:03→19:36)
[2020-02-04] MEDS: AMIODARONE HCL 200 MG TABLET PO SCH ×2 (10:03→19:36)
[2020-02-04] MEDS: METHYLPREDNISOLONE SOD SUCC 125MG/2ML VIAL IVP SCH ×2 (10:03→19:36)
[2020-02-04] MEDS ORDERED: LORAZEPAM 2 MG/ML 1 ML VIAL IVP PRN (12:15)
[2020-02-04] MEDS ORDERED: MORPHINE SULFATE 2 MG/ML 1ML SYG IV PRN (12:15)
[2020-02-04] MEDS ORDERED: MIDAZOLAM HCL 5 MG/ML 2ML VIAL IV ONE (14:45)
[2020-02-04] MEDS: MIDAZOLAM 100MG-0.9% NS 100ML 100 ML IV SCH (15:52)
[2020-02-04] MEDS: FENTANYL 2500MCG+NS 250ML 250 ML IV SCH (17:47)
[2020-02-05] VITALS (75 sets, daily range): BP systolic 95–188; BP diastolic 48–113
[2020-02-05] MEDS: CEFEPIME HCL 2 GM VIAL IVP SCH ×3 (05:12→21:21)
--- NOTE | 2020-02-05 06:41 | NUR ---
Patient rested well during tour. infusions to left upper arm picc propofol 10mcg/kg/min, Fentanyl 100mcg/hr and Versed 8mg/hr. vent settings tidal volume 420 Peep 6 and 70%. will continue to monitor as needed.
[2020-02-05 06:52] LABS: HEMATOCRIT 32.7 % (42-54); MEAN CORPUSCULAR HEMOGLOBIN 31.7 pg (27.0-33.0); MEAN CORPUSCULAR HGB CONC 34.3 g/dL (32.0-36.0); MEAN CORPUSCULAR VOLUME 92.6 fL (79-99); NUCLEATED RED BLOOD CELLS 0.2 % (0.0-0.19); RED BLOOD CELL COUNT(AUTO) 3.53 MIL/uL (4.50-6.20); RED CELL DISTRIBUTION WIDTH 13.1 % (11.0-15.5); WHITE BLOOD COUNT (AUTO) 13.3 K/uL (4.8-10.8)
[2020-02-05 07:22] LABS: ALBUMIN 1.5 g/dL (3.5-5.0); BILIRUBIN,TOTAL 0.4 mg/dL (0.2-1.0); MAGNESIUM 2.3 mg/dL (1.80-2.40); PHOSPHORUS 3.5 mg/dL (2.5-4.9); POTASSIUM 4.3 mmol/L (3.5-5.1); TOTAL PROTEIN, SERUM 5.1 g/dL (6.0-8.3)
[2020-02-05] MEDS: DOXYCYCLINE HYCLATE 100 MG TABLET PO SCH ×2 (08:09→21:21)
[2020-02-05] MEDS: DOCUSATE NA 100MG/10ML UDCUP PO SCH ×2 (08:09→21:21)
[2020-02-05] MEDS: METHYLPREDNISOLONE SOD SUCC 125MG/2ML VIAL IVP SCH ×2 (08:09→21:21)
[2020-02-05] MEDS: METOPROLOL TARTRATE 25 MG TAB PO SCH ×2 (08:09→21:21)
[2020-02-05] MEDS: FAMOTIDINE 20MG TAB 20 MG TAB PO SCH ×2 (08:09→21:21)
[2020-02-05] MEDS: ENOXAPARIN SODIUM 80 MG/0.8 ML SQ SCH ×2 (08:09→21:21)
[2020-02-05] MEDS: POLYETHYLENE GLYCOL 3350 17 GM POWD.PACK PO SCH (08:09)
[2020-02-05] MEDS: AMIODARONE HCL 200 MG TABLET PO SCH ×2 (08:10→21:21)
[2020-02-05] MEDS: FENTANYL 2500MCG+NS 250ML 250 ML IV SCH (10:13)
[2020-02-05] MEDS: MIDAZOLAM 100MG-0.9% NS 100ML 100 ML IV SCH ×2 (10:13→16:37)
[2020-02-05] MEDS: DILTIAZEM HCL 125 MG/25 ML 125 MG in SODIUM CHLORIDE 0.9% 100 ML IV PRN (12:44)
[2020-02-05] MEDS: LACTULOSE 20 GM/30 ML UDCUP PO PRN (13:02)
[2020-02-05] MEDS ORDERED: FUROSEMIDE 10 MG/ML 2ML VIAL ONE (13:32)
[2020-02-05] MEDS ORDERED: DIGOXIN 250 MCG/ML 2ML AMP ONE (13:41)
[2020-02-05] MEDS ORDERED: FUROSEMIDE 10 MG/ML 2ML VIAL IV ONE (13:50)
--- NOTE | 2020-02-05 15:00 | NUR ---
Increase HR: Approximately 1155 Pt's HR increased, rate in 150's, observed Pt for almost an hour, Pt HR still in 150's, BP increased, Pt well sedated, no fever, notified Annabelle SELF PAY COLLECTOR, order received to restart Cardizem drip, and furosemide 20mg, Pt HR continuous to increase even with max dose of Cardizem drip, , around 1400 Dr. Foote at bedside, he saw Pt's HR, order received to give digoxin, will continue to monitor.
[2020-02-05] MEDS ORDERED: DIGOXIN 250 MCG/ML 2ML AMP IV ONE (20:00)
[2020-02-05] MEDS: FUROSEMIDE 10 MG/ML 2ML VIAL IV SCH (21:21)
[2020-02-06] VITALS (85 sets, daily range): BP systolic 103–167; BP diastolic 53–97
[2020-02-06] MEDS ORDERED: DILTIAZEM HCL 5 MG/ML 10 ML VIAL IV ONE ×2 (00:15→00:22)
[2020-02-06 04:35] LABS: ALBUMIN 1.7 g/dL (3.5-5.0); BILIRUBIN,DIRECT 0.1 mg/dL (0.0-0.3); BILIRUBIN,TOTAL 0.5 mg/dL (0.2-1.0); TOTAL PROTEIN, SERUM 5.8 g/dL (6.0-8.3)
[2020-02-06] MEDS: CEFEPIME HCL 2 GM VIAL IVP SCH ×3 (04:46→21:52)
[2020-02-06 07:44] LABS: BASOPHILS % (AUTO) 0.3 % (0.0-5.0); HEMATOCRIT 37.4 % (42-54); LYMPHOCYTES % (AUTO) 0.7 % (21.0-51.0); MEAN CORPUSCULAR HEMOGLOBIN 31.2 pg (27.0-33.0); MEAN CORPUSCULAR HGB CONC 33.2 g/dL (32.0-36.0); MONOCYTES % (AUTO) 1.4 % (3.0-13.0); NEUTROPHILS % (AUTO) 92.6 % (40.0-77.0); PLATELET COUNT (AUTO) 145 K/uL (130-400); RED BLOOD CELL COUNT(AUTO) 3.98 MIL/uL (4.50-6.20); RED CELL DISTRIBUTION WIDTH 13.2 % (11.0-15.5); WHITE BLOOD COUNT (AUTO) 15.7 K/uL (4.8-10.8)
[2020-02-06 07:56] LABS: ALBUMIN 1.8 g/dL (3.5-5.0); BILIRUBIN,TOTAL 0.4 mg/dL (0.2-1.0); CREATININE 1.4 mg/dL (0.5-1.5); MAGNESIUM 2.2 mg/dL (1.80-2.40); PHOSPHORUS 4.5 mg/dL (2.5-4.9); POTASSIUM 4.4 mmol/L (3.5-5.1); TOTAL PROTEIN, SERUM 5.8 g/dL (6.0-8.3)
[2020-02-06] MEDS: METHYLPREDNISOLONE SOD SUCC 125MG/2ML VIAL IVP SCH ×2 (09:16→20:04)
[2020-02-06] MEDS: DOCUSATE NA 100MG/10ML UDCUP PO SCH ×2 (09:16→20:04)
[2020-02-06] MEDS: ENOXAPARIN SODIUM 80 MG/0.8 ML SQ SCH ×2 (09:16→20:10)
[2020-02-06] MEDS: AMIODARONE HCL 200 MG TABLET PO SCH ×2 (09:17→20:05)
[2020-02-06] MEDS: FAMOTIDINE 20MG TAB 20 MG TAB PO SCH ×2 (09:17→20:08)
[2020-02-06] MEDS: FUROSEMIDE 10 MG/ML 2ML VIAL IV SCH ×2 (09:18→20:03)
[2020-02-06] MEDS: POLYETHYLENE GLYCOL 3350 17 GM POWD.PACK PO SCH (09:18)
[2020-02-06] MEDS: METOPROLOL TARTRATE 25 MG TAB PO SCH ×2 (09:18→20:05)
[2020-02-06] MEDS: DOXYCYCLINE HYCLATE 100 MG TABLET PO SCH ×2 (09:18→20:04)
[2020-02-06 09:45] LABS: ABG BASE EXCESS 6.2 mmol/L (-2.0-3.0); ABG HCO3 33.7 mmol/L (21.0-28.0); ABG OXYGEN SATURATION 90.6 % (95.0-99.0); ABG PCO2 61 mmHg (35-48)
[2020-02-06] MEDS: DILTIAZEM HCL 125 MG/25 ML 125 MG in SODIUM CHLORIDE 0.9% 100 ML IV PRN (10:09)
[2020-02-06] MEDS: FENTANYL 2500MCG+NS 250ML 250 ML IV SCH (12:51)
[2020-02-06] MEDS: MIDAZOLAM 100MG-0.9% NS 100ML 100 ML IV SCH (12:51)
[2020-02-06] MEDS: GUAIFENESIN-CODEINE 5 ML SYRUP PO PRN (14:23)
[2020-02-06] MEDS: DIAZEPAM 5 MG/ML 2 ML SYG IVP SCH ×2 (14:23→22:01)
[2020-02-06] MEDS: DIGOXIN 250 MCG/ML 2ML AMP IV SCH (18:05)
[2020-02-07] VITALS (86 sets, daily range): BP systolic 96–143; BP diastolic 43–87
[2020-02-07] MEDS: CEFEPIME HCL 2 GM VIAL IVP SCH ×3 (05:04→20:00)
[2020-02-07 05:56] LABS: BASOPHILS % (AUTO) 0.3 % (0.0-5.0); HEMATOCRIT 38.1 % (42-54); LYMPHOCYTES % (AUTO) 1.2 % (21.0-51.0); MEAN CORPUSCULAR HEMOGLOBIN 31.4 pg (27.0-33.0); MEAN CORPUSCULAR HGB CONC 33.3 g/dL (32.0-36.0); MEAN CORPUSCULAR VOLUME 94.1 fL (79-99); MONOCYTES % (AUTO) 2.7 % (3.0-13.0); NEUTROPHILS % (AUTO) 91.3 % (40.0-77.0); PLATELET COUNT (AUTO) 147 K/uL (130-400); RED BLOOD CELL COUNT(AUTO) 4.05 MIL/uL (4.50-6.20); RED CELL DISTRIBUTION WIDTH 13.1 % (11.0-15.5); WHITE BLOOD COUNT (AUTO) 15.3 K/uL (4.8-10.8)
[2020-02-07 06:13] LABS: ALBUMIN 1.8 g/dL (3.5-5.0); BILIRUBIN,TOTAL 0.4 mg/dL (0.2-1.0); CREATININE 1.2 mg/dL (0.5-1.5); POTASSIUM 4.5 mmol/L (3.5-5.1); TOTAL PROTEIN, SERUM 5.6 g/dL (6.0-8.3)
[2020-02-07] MEDS: DIAZEPAM 5 MG/ML 2 ML SYG IVP SCH ×3 (06:39→22:22)
[2020-02-07 08:29] LABS: ABG BASE EXCESS 8.7 mmol/L (-2.0-3.0); ABG OXYGEN SATURATION 93.6 % (95.0-99.0); ABG PCO2 54 mmHg (35-48)
[2020-02-07] MEDS ORDERED: METHYLNALTREXONE BROMIDE 12 MG/0.6 ML VIAL SQ SCH (09:45)
[2020-02-07] MEDS: GUAIFENESIN-CODEINE 5 ML SYRUP PO PRN (09:47)
[2020-02-07] MEDS: LACTULOSE 20 GM/30 ML UDCUP PO PRN (09:47)
[2020-02-07] MEDS: DOCUSATE NA 100MG/10ML UDCUP PO SCH ×2 (09:48→22:13)
[2020-02-07] MEDS: DOXYCYCLINE HYCLATE 100 MG TABLET PO SCH ×2 (09:48→22:13)
[2020-02-07] MEDS: AMIODARONE HCL 200 MG TABLET PO SCH ×2 (09:48→22:13)
[2020-02-07] MEDS: METOPROLOL TARTRATE 25 MG TAB PO SCH ×2 (09:48→22:13)
[2020-02-07] MEDS: FAMOTIDINE 20MG TAB 20 MG TAB PO SCH ×2 (09:48→22:13)
[2020-02-07] MEDS: POLYETHYLENE GLYCOL 3350 17 GM POWD.PACK PO SCH (09:49)
[2020-02-07] MEDS: METHYLPREDNISOLONE SOD SUCC 125MG/2ML VIAL IVP SCH ×2 (09:49→22:13)
[2020-02-07] MEDS: ENOXAPARIN SODIUM 80 MG/0.8 ML SQ SCH ×2 (09:49→22:14)
[2020-02-07] MEDS: FUROSEMIDE 10 MG/ML 2ML VIAL IV SCH ×2 (09:51→22:13)
--- NOTE | 2020-02-07 10:04 | NUR ---
RD FOLLOW UP Pt tolerating Tube feeding of Vital AF 1.2 @40mls/hr. Tube Feeding not meeting goal rate (45mls/hr). LBM 01/28/20. High risk malnutrition with mild to moderate fat wasting. Constipation with Miralax, Colace in place. Urine output 1200ml, Lasix in place. Monitored labs: WBC 15.3, BUN 53, CO2 35, BG 184, AST 39, Alb 1.8, Na 144. Recommend to continue advance tube feeding to goal as tolerated Recommend to monitor Pt weight, I/O, Tube feeding tolerance. RD to continue to monitor. Addendum: 02/07/20 at [address] Amended: Links added.
--- NOTE | 2020-02-07 11:46 | NUR ---
DC PLAN CALLED REQUESTING INFO FOR WORK MAN COMP. PATIENT VENTED. SHE IS THE NEXT OF KIN. VERIFIED NAME AND OF PATIENT. GOT ANTHONY PINEDA TO [employer] FOR INFO. EMAILED TO [email or web address] SENT MED REQ WITH INFO WITH VENT AND MEDICATIONS. Addendum: 02/07/20 at 1151 by ERNESTO PANTOJA RN CM Amended: Links added.
[2020-02-07] MEDS: MIDAZOLAM 100MG-0.9% NS 100ML 100 ML IV SCH (12:23)
[2020-02-07] MEDS: DIGOXIN 250 MCG/ML 2ML AMP IV SCH (16:37)
[2020-02-07] MEDS: FENTANYL 2500MCG+NS 250ML 250 ML IV SCH (17:35)
[2020-02-07] MEDS: IPRATROPIUM 0.5 MG/2.5 ML INH IH SCH (18:00)
[2020-02-08] VITALS (72 sets, daily range): BP systolic 97–194; BP diastolic 54–111
[2020-02-08 04:16] LABS: HEMATOCRIT 37.7 % (42-54); MEAN CORPUSCULAR HEMOGLOBIN 31.3 pg (27.0-33.0); MEAN CORPUSCULAR HGB CONC 33.2 g/dL (32.0-36.0); MEAN CORPUSCULAR VOLUME 94.5 fL (79-99); RED BLOOD CELL COUNT(AUTO) 3.99 MIL/uL (4.50-6.20); RED CELL DISTRIBUTION WIDTH 13.3 % (11.0-15.5); WHITE BLOOD COUNT (AUTO) 14.4 K/uL (4.8-10.8)
[2020-02-08 04:32] LABS: CREATININE 1.3 mg/dL (0.5-1.5); MAGNESIUM 2.6 mg/dL (1.80-2.40); PHOSPHORUS 3.5 mg/dL (2.5-4.9); POTASSIUM 4.2 mmol/L (3.5-5.1)
[2020-02-08] MEDS: CEFEPIME HCL 2 GM VIAL IVP SCH ×3 (04:45→19:55)
[2020-02-08] MEDS: DIAZEPAM 5 MG/ML 2 ML SYG IVP SCH (04:45)
[2020-02-08 05:32] LABS: ABG BASE EXCESS 5.4 mmol/L (-2.0-3.0); ABG PCO2 54 mmHg (35-48)
[2020-02-08] MEDS ORDERED: METHYLNALTREXONE BROMIDE 12 MG/0.6 ML VIAL SQ SCH (10:15)
[2020-02-08] MEDS: ENOXAPARIN SODIUM 80 MG/0.8 ML SQ SCH ×2 (10:29→19:55)
[2020-02-08] MEDS: POLYETHYLENE GLYCOL 3350 17 GM POWD.PACK PO SCH (10:29)
[2020-02-08] MEDS: FAMOTIDINE 20MG TAB 20 MG TAB PO SCH ×2 (10:30→19:55)
[2020-02-08] MEDS: METHYLPREDNISOLONE SOD SUCC 125MG/2ML VIAL IVP SCH ×3 (10:30→19:55)
[2020-02-08] MEDS: FUROSEMIDE 10 MG/ML 2ML VIAL IV SCH ×2 (10:30→19:55)
[2020-02-08] MEDS: GUAIFENESIN-CODEINE 5 ML SYRUP PO PRN (10:30)
[2020-02-08] MEDS: LACTULOSE 20 GM/30 ML UDCUP PO PRN (10:30)
[2020-02-08] MEDS: AMIODARONE HCL 200 MG TABLET PO SCH ×2 (10:30→19:55)
[2020-02-08] MEDS: METOPROLOL TARTRATE 25 MG TAB PO SCH ×2 (10:30→19:55)
[2020-02-08] MEDS: DOCUSATE NA 100MG/10ML UDCUP PO SCH ×2 (10:31→19:55)
[2020-02-08] MEDS: DOXYCYCLINE HYCLATE 100 MG TABLET PO SCH ×2 (10:31→19:55)
--- NOTE | 2020-02-08 11:10 | NUR ---
RD UPDATE Pt with low fiber (6gms/day), high protein tube feeding Vital AF 1.2 with no BM since 01/27. RD notified to Re-Evaluate Tube Feeding. RD recommend initiate High Protein Glucerna 1.5 with dietary to fiber. Rec to initiate at 20mls/hr. Goal rate 50mls to receive 20gm fiber per day. Recommend water flushes of 150 Q4hrs. Propofol discontinued. Recommendations faxed to 2B, [place] Pinto notified for [place] Arguello. RD to continue to monitor.
[2020-02-08] MEDS: MIDAZOLAM 100MG-0.9% NS 100ML 100 ML IV SCH (11:25)
[2020-02-08] MEDS: DILTIAZEM HCL 60 MG TABLET PO SCH ×3 (11:25→23:19)
[2020-02-08] MEDS: LACTULOSE 20 GM/30 ML UDCUP PO SCH ×2 (14:58→19:00)
[2020-02-08] MEDS: MORPHINE SULFATE 4 MG/1ML SYG IV PRN (15:01)
[2020-02-08] MEDS: DIGOXIN 250 MCG/ML 2ML AMP IV SCH (15:04)
[2020-02-08] MEDS ORDERED: BISACODYL 10 MG SUPP.RECT RC ONE ×2 (16:20→18:03)
[2020-02-08] MEDS: FENTANYL 2500MCG+NS 250ML 250 ML IV SCH (18:05)
[2020-02-08] MEDS: DIAZEPAM 5 MG TABLET PO PRN ×2 (18:06→21:37)
[2020-02-08] MEDS: ACETAMINOPHEN 325 MG TAB PO PRN (21:45)
[2020-02-09] VITALS (39 sets, daily range): BP systolic 100–145; BP diastolic 61–88
[2020-02-09] MEDS: LACTULOSE 20 GM/30 ML UDCUP PO SCH ×4 (01:00→14:51)
[2020-02-09 04:06] LABS: HEMATOCRIT 39.5 % (42-54); MEAN CORPUSCULAR HEMOGLOBIN 31.2 pg (27.0-33.0); MEAN CORPUSCULAR HGB CONC 32.7 g/dL (32.0-36.0); MEAN CORPUSCULAR VOLUME 95.6 fL (79-99); RED BLOOD CELL COUNT(AUTO) 4.13 MIL/uL (4.50-6.20); RED CELL DISTRIBUTION WIDTH 14.1 % (11.0-15.5); WHITE BLOOD COUNT (AUTO) 16.8 K/uL (4.8-10.8)
[2020-02-09 04:16] LABS: CREATININE 1.5 mg/dL (0.5-1.5)
[2020-02-09] MEDS: CEFEPIME HCL 2 GM VIAL IVP SCH (05:04)
--- NOTE | 2020-02-09 06:06 | NUR ---
Approximately 1900, Patient received well with no s/s of distress noted but agitation and increased heart rated noted in 120s. pt turned q2 during tour as ordered. Large loose stools x 2 noted during tour. patient cleaned and given a bed bath. Left upper arm picc lumens flushed well with no s/s of infiltration or infection noted. Current infusions Fentanyl 50mcg/hr (5ml/hr), Versed 10mg/hr (10ml/hr) Cardizem 10mg/hr (10 ml/hr). No skin breakdown noted at this time. will continue to monitor as needed.
[2020-02-09] MEDS: DILTIAZEM HCL 60 MG TABLET PO SCH (06:43)
[2020-02-09 06:59] LABS: ABG BASE EXCESS 2.8 mmol/L (-2.0-3.0); ABG HCO3 28.9 mmol/L (21.0-28.0); ABG PCO2 50 mmHg (35-48)
[2020-02-09] MEDS: AMIODARONE HCL 200 MG TABLET PO SCH ×2 (08:49→22:22)
[2020-02-09] MEDS: FUROSEMIDE 10 MG/ML 2ML VIAL IV SCH ×2 (08:49→14:30)
[2020-02-09] MEDS: METHYLPREDNISOLONE SOD SUCC 125MG/2ML VIAL IVP SCH ×2 (08:49→22:22)
[2020-02-09] MEDS: FAMOTIDINE 20MG TAB 20 MG TAB PO SCH ×2 (08:49→22:22)
[2020-02-09] MEDS: ENOXAPARIN SODIUM 80 MG/0.8 ML SQ SCH ×2 (08:50→22:22)
[2020-02-09] MEDS: DOCUSATE NA 100MG/10ML UDCUP PO SCH ×2 (08:50→22:22)
[2020-02-09] MEDS: METOPROLOL TARTRATE 25 MG TAB PO SCH ×2 (08:50→22:22)
[2020-02-09] MEDS: POLYETHYLENE GLYCOL 3350 17 GM POWD.PACK PO SCH (08:50)
[2020-02-09] MEDS: MIDAZOLAM 100MG-0.9% NS 100ML 100 ML IV SCH (14:39)
[2020-02-09] MEDS: FENTANYL 2500MCG+NS 250ML 250 ML IV SCH (14:41)
[2020-02-09] MEDS: DIGOXIN 250 MCG/ML 2ML AMP IV SCH (16:32)
[2020-02-09] MEDS: DIAZEPAM 5 MG TABLET PO PRN (22:00)
[2020-02-10] VITALS (53 sets, daily range): BP systolic 105–169; BP diastolic 51–117
[2020-02-10] MEDS: LACTULOSE 20 GM/30 ML UDCUP PO SCH ×4 (00:44→19:00)
[2020-02-10 04:08] LABS: HEMATOCRIT 39.8 % (42-54); MEAN CORPUSCULAR HEMOGLOBIN 31.4 pg (27.0-33.0); MEAN CORPUSCULAR HGB CONC 33.4 g/dL (32.0-36.0); MEAN CORPUSCULAR VOLUME 94.1 fL (79-99); RED BLOOD CELL COUNT(AUTO) 4.23 MIL/uL (4.50-6.20); WHITE BLOOD COUNT (AUTO) 16.9 K/uL (4.8-10.8)
[2020-02-10 04:21] LABS: ALBUMIN 2.1 g/dL (3.5-5.0); BILIRUBIN,TOTAL 0.3 mg/dL (0.2-1.0); CREATININE 1.1 mg/dL (0.5-1.5); MAGNESIUM 2.6 mg/dL (1.80-2.40); PHOSPHORUS 3.5 mg/dL (2.5-4.9); POTASSIUM 4.2 mmol/L (3.5-5.1); TOTAL PROTEIN, SERUM 5.7 g/dL (6.0-8.3)
--- NOTE | 2020-02-10 06:22 | NUR ---
Patient received well with no s/s of distress during tour. Large loose stools x 1 noted during tour. Left upper arm picc lumens flushed well with no s/s of infiltration or infection noted. Current infusions Fentanyl 50mcg/hr (5ml/hr) and Versed 8mg/hr (8ml/hr). Patient continued during tour with head of bed elevated and receiving. Glucerna 1.5 @40cc/hr with no s/s of aspiration noted. No skin breakdown noted at this time. will continue to monitor as needed.
[2020-02-10] MEDS: DOCUSATE NA 100MG/10ML UDCUP PO SCH ×2 (07:05→19:44)
[2020-02-10] MEDS: POLYETHYLENE GLYCOL 3350 17 GM POWD.PACK PO SCH (07:06)
[2020-02-10] MEDS: DIAZEPAM 5 MG TABLET PO PRN ×2 (07:42→15:14)
[2020-02-10] MEDS: ENOXAPARIN SODIUM 80 MG/0.8 ML SQ SCH ×2 (07:43→19:43)
[2020-02-10] MEDS: FUROSEMIDE 10 MG/ML 2ML VIAL IV SCH (07:44)
[2020-02-10] MEDS: AMIODARONE HCL 200 MG TABLET PO SCH ×2 (07:45→19:43)
[2020-02-10] MEDS: FAMOTIDINE 20MG TAB 20 MG TAB PO SCH ×2 (07:45→19:43)
[2020-02-10] MEDS: METOPROLOL TARTRATE 25 MG TAB PO SCH ×2 (07:45→19:43)
[2020-02-10 08:39] LABS: ABG BASE EXCESS 5.5 mmol/L (-2.0-3.0); ABG HCO3 31.1 mmol/L (21.0-28.0); ABG OXYGEN SATURATION 96.2 % (95.0-99.0); ABG PCO2 49 mmHg (35-48)
[2020-02-10] MEDS: METHYLPREDNISOLONE SOD SUCC 125MG/2ML VIAL IVP SCH ×2 (09:33→19:44)
--- NOTE | 2020-02-10 10:47 | NUR ---
LAUNDROMAT WORKER FOR [employer] NOTIFIED BY RADIOLOGY OF LEFT PNEUMOTHORAX NOTED IN AM XRAY. CALLED AND SPOKE TO CYNTHIA AVENDANO REAL ESTATE ACCOUNT EXECUTIVE OF [employer] AND NOTIFIED OF AM XRAY FINDINGS, PATIENT VITAL SIGNS STABLE. NEW ORDERS: DECREASE PEEP TO 4.
[2020-02-10] MEDS ORDERED: BALSAM PERU/CASTOR OIL 60 GM TUBE TP SCH (13:30)
[2020-02-10] MEDS: MIDAZOLAM 100MG-0.9% NS 100ML 100 ML IV SCH (13:35)
[2020-02-10] MEDS: DIGOXIN 250 MCG/ML 2ML AMP IV SCH (15:14)
[2020-02-10 18:57] LABS: ABG BASE EXCESS 7.3 mmol/L (-2.0-3.0); ABG HCO3 32.4 mmol/L (21.0-28.0); ABG OXYGEN SATURATION 92.8 % (95.0-99.0); ABG PCO2 47 mmHg (35-48)
[2020-02-11] VITALS (48 sets, daily range): BP systolic 95–154; BP diastolic 48–98
[2020-02-11] MEDS: LACTULOSE 20 GM/30 ML UDCUP PO SCH ×4 (01:00→19:00)
[2020-02-11 05:20] LABS: HEMATOCRIT 37.8 % (42-54); MEAN CORPUSCULAR HEMOGLOBIN 31.1 pg (27.0-33.0); MEAN CORPUSCULAR HGB CONC 32.5 g/dL (32.0-36.0); MEAN CORPUSCULAR VOLUME 95.5 fL (79-99); RED BLOOD CELL COUNT(AUTO) 3.96 MIL/uL (4.50-6.20); RED CELL DISTRIBUTION WIDTH 14.6 % (11.0-15.5); WHITE BLOOD COUNT (AUTO) 17.6 K/uL (4.8-10.8)
[2020-02-11 05:44] LABS: POTASSIUM 4.7 mmol/L (3.5-5.1)
[2020-02-11] MEDS: METOPROLOL TARTRATE 25 MG TAB PO SCH ×2 (08:26→19:44)
[2020-02-11] MEDS: FAMOTIDINE 20MG TAB 20 MG TAB PO SCH ×2 (08:26→19:44)
[2020-02-11] MEDS: FUROSEMIDE 10 MG/ML 2ML VIAL IV SCH (08:26)
[2020-02-11] MEDS: AMIODARONE HCL 200 MG TABLET PO SCH ×2 (08:26→19:43)
[2020-02-11] MEDS: ENOXAPARIN SODIUM 80 MG/0.8 ML SQ SCH ×2 (08:28→19:44)
[2020-02-11] MEDS: METHYLPREDNISOLONE SOD SUCC 125MG/2ML VIAL IVP SCH ×2 (08:28→19:43)
[2020-02-11] MEDS: DIAZEPAM 5 MG TABLET PO PRN ×2 (08:36→17:00)
[2020-02-11] MEDS: MIDAZOLAM 100MG-0.9% NS 100ML 100 ML IV SCH ×2 (08:57→17:02)
[2020-02-11] MEDS: DOCUSATE NA 100MG/10ML UDCUP PO SCH ×2 (09:00→19:43)
[2020-02-11] MEDS: POLYETHYLENE GLYCOL 3350 17 GM POWD.PACK PO SCH (09:00)
[2020-02-11] MEDS: MORPHINE SULFATE 4 MG/1ML SYG IV PRN (09:41)
--- NOTE | 2020-02-11 09:44 | NUR ---
PROVIDER NOTIFICATION [phone] STORM TO [phone] FOR [facility], PENDING CALL BACK. [phone]-CYNTHIA AVENDANO OPHTHALMOLOGIST AT BEDSIDE, MADE AWARE OF PATIENT TACHYCARDIA, HR 120-150'S, CYNTHIA TITRATED OXYGEN TO 100%, GAVE ORDERS FOR METOPROLOL 25 MG PO NOW AND STANDBY DILTIAZEM ORDERS. SEE NURSING COMMUNICATION FOR DETAILS [address] STORM TO [phone] AGAIN, PENDING CALL BACK.
[2020-02-11] MEDS ORDERED: DILTIAZEM HCL 5 MG/ML 5 ML VIAL IVP SCH (09:59)
[2020-02-11] MEDS ORDERED: METOPROLOL TARTRATE 25 MG TAB ONE (10:00)
[2020-02-11] MEDS: DILTIAZEM HCL 125 MG/25 ML 125 MG in SODIUM CHLORIDE 0.9% 100 ML IV SCH (10:33)
[2020-02-11] MEDS ORDERED: SODIUM CHLORIDE 0.9% 1000ML 1,000 ML IV ONE ×2 (13:35→14:00)
[2020-02-11 13:57] LABS: LACTATE DEHYDROGENASE 465 U/L (81-234)
--- NOTE | 2020-02-11 15:33 | NUR ---
PROVIDER NOTIFIED DR. DOTTY STORM RETURNED PAGE AT THIS TIME. UPDATED ON PATIENT STATUS, NOTIFIED MD OF PATIENT'S HEART RATE OF 120-150'S EARLIER IN THE MORNING, ADVISED OF ORDERS TRANSFER WORKER CYNTHIA AVENDANO GAVE. NEW ORDERS GIVEN BY DR. STORM: STOP CARDIZEM DRIP 1 HOUR POST NEW PO CARDIZEM ORDERED.
[2020-02-11] MEDS: DILTIAZEM HCL 60 MG TABLET PO SCH ×3 (16:00→23:46)
[2020-02-11] MEDS: DIGOXIN 250 MCG/ML 2ML AMP IV SCH (16:00)
[2020-02-12] VITALS (76 sets, daily range): BP systolic 95–142; BP diastolic 51–89
[2020-02-12] MEDS: LACTULOSE 20 GM/30 ML UDCUP PO SCH ×4 (01:35→17:20)
[2020-02-12] MEDS: DILTIAZEM HCL 60 MG TABLET PO SCH ×3 (04:27→16:24)
[2020-02-12 04:37] LABS: BASOPHILS % (AUTO) 0.3 % (0.0-5.0); HEMATOCRIT 36.4 % (42-54); LYMPHOCYTES % (AUTO) 0.9 % (21.0-51.0); MEAN CORPUSCULAR HEMOGLOBIN 31.2 pg (27.0-33.0); MEAN CORPUSCULAR HGB CONC 32.1 g/dL (32.0-36.0); MEAN CORPUSCULAR VOLUME 97.1 fL (79-99); MONOCYTES % (AUTO) 2.1 % (3.0-13.0); NEUTROPHILS % (AUTO) 93.6 % (40.0-77.0); PLATELET COUNT (AUTO) 125 K/uL (130-400); RED BLOOD CELL COUNT(AUTO) 3.75 MIL/uL (4.50-6.20); RED CELL DISTRIBUTION WIDTH 14.9 % (11.0-15.5); WHITE BLOOD COUNT (AUTO) 17.4 K/uL (4.8-10.8)
[2020-02-12 04:48] LABS: CREATININE 1.1 mg/dL (0.5-1.5); POTASSIUM 4.8 mmol/L (3.5-5.1)
[2020-02-12] MEDS: METHYLPREDNISOLONE SOD SUCC 125MG/2ML VIAL IVP SCH ×2 (07:51→19:56)
[2020-02-12] MEDS: METOPROLOL TARTRATE 25 MG TAB PO SCH ×2 (07:52→19:58)
[2020-02-12] MEDS: FUROSEMIDE 10 MG/ML 2ML VIAL IV SCH (07:52)
[2020-02-12] MEDS: DIAZEPAM 5 MG TABLET PO PRN (07:53)
[2020-02-12] MEDS: FAMOTIDINE 20MG TAB 20 MG TAB PO SCH ×2 (07:54→19:57)
[2020-02-12] MEDS: DOCUSATE NA 100MG/10ML UDCUP PO SCH ×2 (07:54→19:57)
[2020-02-12] MEDS: AMIODARONE HCL 200 MG TABLET PO SCH ×2 (07:54→19:58)
[2020-02-12] MEDS: POLYETHYLENE GLYCOL 3350 17 GM POWD.PACK PO SCH (07:54)
[2020-02-12] MEDS: ENOXAPARIN SODIUM 80 MG/0.8 ML SQ SCH ×2 (07:55→19:57)
[2020-02-12 08:14] LABS: ABG BASE EXCESS 6.7 mmol/L (-2.0-3.0); ABG HCO3 32.9 mmol/L (21.0-28.0); ABG OXYGEN SATURATION 95.2 % (95.0-99.0); ABG PCO2 53 mmHg (35-48)
[2020-02-12] MEDS ORDERED: MIDAZOLAM HCL 50 MG in SODIUM CHLORIDE 0.9% 50 ML IV SCH (11:15)
--- NOTE | 2020-02-12 11:15 | NUR ---
rapid heart rate salena christian notified of sustained heart rate in the 120's-130's. ordered to keep patient sedated.
[2020-02-12] MEDS ORDERED: MIDAZOLAM HCL 100 MG in SODIUM CHLORIDE 0.9% 100 ML IV SCH (11:30)
[2020-02-12] MEDS: DIGOXIN 250 MCG/ML 2ML AMP IV SCH (14:59)
[2020-02-12] MEDS: FENTANYL 2500MCG+NS 250ML 250 ML IV SCH (15:13)
[2020-02-12] MEDS: DILTIAZEM HCL 125 MG/25 ML 125 MG in SODIUM CHLORIDE 0.9% 100 ML IV SCH (16:24)
--- NOTE | 2020-02-12 16:35 | NUR ---
sustained tachycardia patient continues with heart rate 120's-130's sustained. continues on diltiazem drip with increase made to 8mg/hr. notified salena christian np, no further orders at this time.
[2020-02-12] MEDS ORDERED: COMPOUND IV REFRIGERATED 1 EACH IVSOLN MISC PRN (16:45)
[2020-02-12] MEDS ORDERED: SODIUM CHLORIDE 0.9% 500ML 500 ML IV ONE (17:10)
[2020-02-12] MEDS ORDERED: IOHEXOL-350 75 ML VIAL IV ONE (18:10)
[2020-02-12 18:14] LABS: ABG HCO3 28.8 mmol/L (21.0-28.0); ABG OXYGEN SATURATION 98.6 % (95.0-99.0); ABG PCO2 44 mmHg (35-48)
[2020-02-13] VITALS (81 sets, daily range): BP systolic 55–141; BP diastolic 18–83
[2020-02-13] MEDS: LACTULOSE 20 GM/30 ML UDCUP PO SCH ×4 (00:53→17:58)
[2020-02-13] MEDS: DILTIAZEM HCL 60 MG TABLET PO SCH ×4 (00:53→17:52)
[2020-02-13 03:58] LABS: HEMATOCRIT 36.2 % (42-54); MEAN CORPUSCULAR HEMOGLOBIN 32.1 pg (27.0-33.0); MEAN CORPUSCULAR HGB CONC 32.9 g/dL (32.0-36.0); MEAN CORPUSCULAR VOLUME 97.6 fL (79-99); RED BLOOD CELL COUNT(AUTO) 3.71 MIL/uL (4.50-6.20); RED CELL DISTRIBUTION WIDTH 15.2 % (11.0-15.5); WHITE BLOOD COUNT (AUTO) 23.1 K/uL (4.8-10.8)
[2020-02-13 04:20] LABS: BILIRUBIN,TOTAL 0.3 mg/dL (0.2-1.0); CREATININE 1.3 mg/dL (0.5-1.5); POTASSIUM 4.1 mmol/L (3.5-5.1); TOTAL PROTEIN, SERUM 5.2 g/dL (6.0-8.3)
[2020-02-13] MEDS: METHYLPREDNISOLONE SOD SUCC 125MG/2ML VIAL IVP SCH ×2 (07:45→22:31)
[2020-02-13] MEDS: POLYETHYLENE GLYCOL 3350 17 GM POWD.PACK PO SCH (07:45)
[2020-02-13] MEDS: ENOXAPARIN SODIUM 80 MG/0.8 ML SQ SCH ×2 (07:47→21:00)
[2020-02-13] MEDS: METOPROLOL TARTRATE 25 MG TAB PO SCH ×2 (07:47→21:00)
[2020-02-13] MEDS: FAMOTIDINE 20MG TAB 20 MG TAB PO SCH ×2 (07:48→21:00)
[2020-02-13] MEDS: AMIODARONE HCL 200 MG TABLET PO SCH ×2 (07:48→21:00)
[2020-02-13] MEDS: DOCUSATE NA 100MG/10ML UDCUP PO SCH ×2 (07:49→21:00)
[2020-02-13] MEDS: ACETAMINOPHEN 325 MG TAB PO PRN ×2 (08:07→12:36)
[2020-02-13] MEDS ORDERED: SODIUM CHLORIDE 0.9% 1000ML 1,000 ML IV ONE ×3 (10:45→20:32)
--- NOTE | 2020-02-13 12:36 | NUR ---
REBECCA MENDIOLA NP ADVISED OF CONTINUED ELEVATED HEART RATE AND NEW ONSET OF RED APPEARANCE TO GI CONTENTS; TUBE FEEDINGS HELD AT THIS TIME.
--- NOTE | 2020-02-13 13:00 | NUR ---
DR. LAUREN MCINTOSH ASSESSED PATIENT AT BEDSIDE. ADVISED OF BLOOD IN NG TUBE, ADVISED OF ALL VITAL SIGNS AND ABNORMAL FINDINGS. ORDERED TO KEEP PATIENT SEDATED AT THIS TIME. NO SEDATION VACATION
[2020-02-13] MEDS ORDERED: VANCOMYCIN PROTOCOL PER PHARMACY IV SCH (13:30)
[2020-02-13] MEDS: MEROPENEM 1 GM VIAL IVP SCH ×2 (13:51→22:31)
[2020-02-13] MEDS ORDERED: VANCOMYCIN 1.25 GM in SODIUM CHLORIDE 0.9% 250 ML IV SCH (14:15)
[2020-02-13] MEDS: DIGOXIN 250 MCG/ML 2ML AMP IV SCH (15:07)
[2020-02-13] MEDS: DILTIAZEM HCL 125 MG/25 ML 125 MG in SODIUM CHLORIDE 0.9% 100 ML IV PRN (15:20)
[2020-02-13] MEDS: MORPHINE SULFATE 4 MG/1ML SYG IV PRN (15:35)
--- NOTE | 2020-02-13 15:49 | NUR ---
ABNORMAL FINDINGS NOTIFIED CASEY RIVERA OF CONSISTENTLY ELEVATED HEART RATE, 120-130'S, PATIENT BREATHING ASYNCRONOUS AND LABORED WITH VENTILATOR, RR IN THE 30'S, BLOOD PRESSURE 130/73. PATIENT'S SEDATION AND DILTIAZEM DRIPS ARE AT MAXIMUM DOSES. WILL COLLABORATE WITH MD, AWAITING ORDERS
--- NOTE | 2020-02-13 15:54 | NUR ---
DC PLAN COMMUNICATED WITH THIS MORNING. EXPRESSED CONCERN REGARDING NOT BEING ABLE TO SPEAK TO MD. HAD CONCERNS REGARDING TRACHE PLACEMENT. ESCALATED TO [facility]. Addendum: 02/13/20 at 1556 by ERNESTO PANTOJA RN CM Amended: Links added.
[2020-02-13] MEDS: MIDAZOLAM 100MG-0.9% NS 100ML 100 ML IV SCH (16:07)
[2020-02-13] MEDS: FENTANYL 2500MCG+NS 250ML 250 ML IV SCH (16:08)
[2020-02-13] MEDS ORDERED: CISATRACURIUM BESYLATE 100 MG in SODIUM CHLORIDE 0.9% 100 ML IV SCH (16:15)
[2020-02-13 16:30] LABS: MEAN CORPUSCULAR HEMOGLOBIN 31.7 pg (27.0-33.0); MEAN CORPUSCULAR HGB CONC 32.1 g/dL (32.0-36.0); MEAN CORPUSCULAR VOLUME 98.7 fL (79-99); NUCLEATED RED BLOOD CELLS 0.2 % (0.0-0.19); PLATELET COUNT (AUTO) 129 K/uL (130-400); RED BLOOD CELL COUNT(AUTO) 3.85 MIL/uL (4.50-6.20); RED CELL DISTRIBUTION WIDTH 15.8 % (11.0-15.5)
[2020-02-13 16:37] LABS: WHITE BLOOD COUNT (AUTO) 37.2 K/uL (4.8-10.8)
[2020-02-13 16:56] LABS: BAND NEUTROPHILS % (MANUAL) 30 % (0-2); LYMPHOCYTES % (MANUAL) 1 % (22-44); MAN.DIFF COMMENT-IMPRESSION MANUAL DIFFERENTIAL; MONOCYTES % (MANUAL) 4 % (2-9); REACTIVE LYMPHOCYTES 1 % (0-0); SEGMENTED NEUTROPHILS % 64 % (40-70)
[2020-02-13 17:01] LABS: PLATELET MORPHOLOGY COMMENT LARGE PLTS PRESENT
--- NOTE | 2020-02-13 17:53 | NUR ---
oral diltiazem held oral/ng tube diltiazem dose due to blood pressure of 88/50, map of 64. iv diltiazem also placed on hold. patient currently receiving sedation: nimbex, fentanyl, and midazolam.
--- NOTE | 2020-02-13 17:58 | NUR ---
lactulose held lactulose held due to patient having diarrhea and new onset of gi bleed as per md. will continue to assess and monitor for need of medication.
[2020-02-13] MEDS ORDERED: NOREPINEPHRINE 4MG/NS 250ML 250 ML IV SCH ×2 (18:15→18:30)
[2020-02-13] MEDS ORDERED: NOREPINEPHRINE 4MG/NS 250ML 250 ML IV ONE (18:18)
[2020-02-13] MEDS ORDERED: NOREPINEPHRINE BITARTRATE 8 MG/NS 250ML IV SCH ×2 (18:30)
[2020-02-13] MEDS ORDERED: NOREPINEPHRINE BITARTRATE 16 MG in SODIUM CHLORIDE 0.9% 250 ML IV SCH (18:30)
[2020-02-13] MEDS ORDERED: PANTOPRAZOLE SODIUM 80 MG in SODIUM CHLORIDE 0.9% 100 ML IVP SCH (20:15)
[2020-02-13] MEDS ORDERED: NOREPINEPHRINE BITARTRATE 32 MG in SODIUM CHLORIDE 0.9% 250 ML IV SCH (20:15)
[2020-02-13] MEDS ORDERED: VASOPRESSIN 40 UNITS in SODIUM CHLORIDE 0.9% 40 ML IV SCH (20:15)
[2020-02-13] MEDS ORDERED: ALBUMIN (HUMAN) 5% 250 ML IV SCH (20:30)
[2020-02-13] MEDS ORDERED: ALBUMIN (HUMAN) 5% 250 ML IV ONE (21:30)
--- NOTE | 2020-02-14 01:38 | NUR ---
PT 2250 ON 02/13/20
[2020-02-14] MEDS ORDERED: VANCOMYCIN 1GM+NS 250ML 250 ML IV SCH (09:00)
== END 2020-02-13 22:50 | disposition expired | DRG 207 ==
LOC: EDH 11:23 → OBSVTOIN 11:24 → EDHIP 11:24 → 2BH 17:22
PROVIDERS: ADMIT Internal Medicine Critical Care Medicine; ATTEND Internal Medicine Critical Care Medicine
PROC: XW13325 Transfusion of Convalescent Plasma (Nonautologous) into Peripheral Vein, Percutaneous Approach, New Technology Group 5 (ICD-10-PCS; 2020-01-17)
PROC: XW033E5 Introduction of Remdesivir Anti-infective into Peripheral Vein, Percutaneous Approach, New Technology Group 5 (ICD-10-PCS; 2020-01-21)
PROC: 5A09357 Assistance with Respiratory Ventilation, Less than 24 Consecutive Hours, Continuous Positive Airway Pressure (ICD-10-PCS; 2020-01-29)
PROC: 5A1955Z Respiratory Ventilation, Greater than 96 Consecutive Hours (ICD-10-PCS; principal; 2020-01-30)
PROC: 02HV33Z Insertion of Infusion Device into Superior Vena Cava, Percutaneous Approach (ICD-10-PCS; 2020-01-30)
PROC: B548ZZA Ultrasonography of Superior Vena Cava, Guidance (ICD-10-PCS; 2020-01-30)
PROC: 5A12012 Performance of Cardiac Output, Single, Manual (ICD-10-PCS; 2020-01-30)
PROC: 0BH17EZ Insertion of Endotracheal Airway into Trachea, Via Natural or Artificial Opening (ICD-10-PCS; 2020-01-30)
PROC: 5A12012 Performance of Cardiac Output, Single, Manual (ICD-10-PCS; 2020-02-13)
DX: U07.1 COVID-19 (principal); E43 Unspecified severe protein-calorie malnutrition; J12.89 Other viral pneumonia; J96.21 Acute and chronic respiratory failure with hypoxia; J96.22 Acute and chronic respiratory failure with hypercapnia; A41.9 Sepsis, unspecified organism; E87.1 Hypo-osmolality and hyponatremia; I48.92 Unspecified atrial flutter; E87.6 Hypokalemia; E78.00 Pure hypercholesterolemia, unspecified; I10 Essential (primary) hypertension; E66.9 Obesity, unspecified; E78.5 Hyperlipidemia, unspecified; F41.9 Anxiety disorder, unspecified; I48.0 Paroxysmal atrial fibrillation; N28.9 Disorder of kidney and ureter, unspecified; J98.2 Interstitial emphysema; Z66 Do not resuscitate; K59.03 Drug induced constipation; T40.605A Adverse effect of unspecified narcotics, initial encounter; Z79.01 Long term (current) use of anticoagulants; Z79.899 Other long term (current) drug therapy; Z93.1 Gastrostomy status; Z68.20 Body mass index [BMI] 20.0-20.9, adult; Y92.89 Other specified places as the place of occurrence of the external cause
CPT/HCPCS: 31500; 36415; 36569; 36600; 71045; 71275; 74018; 80048; 80053; 80061; 80076; 80202; 81001; 82150; 82435; 82550; 82728; 82803; 82947; 82948; 83605; 83615; 83690; 83735; 83874; 83880; 84100; 84132; 84145; 84295; 84450; 84460; 84478; 84484; 85018; 85025; 85027; 85378; 85610; 85730; 86140; 86900; 86901; 86927; 87040; 87071; 87088; 87205; 87486; 87581; 87633; 87798; 92950; 93005; 93306; 93356; 93970; 94002; 94003; 94640; 94660; A4344; C1751; C1894; C9113; G0378; J0282; J0456; J0692; J0696; J1160; J1650; J1940; J1956; J2060; J2185; J2212; J2250; J2270; J2370; J2405; J2704; J2920; J2930; J3010; J3360; J3370; J3475; J3490; J7030; J7040; J7050; J7060; J8540; Q9967; U0003